=== PATIENT | female | born 1935 | race Caucasian/White ===

== ENCOUNTER 2017-12-08 12:57 | Inpatient (IN) ==
--- NOTE | 2017-12-08 13:42 | CT ---
HISTORY: Altered mental status Study: CT brain without contrast Comparison: None Technique: Multiple axial images of the brain were obtained from the skull base to the vertex without administra tion of IV contrast. Findings: No acute intraparenchymal hemorrhage or mass can be identified. No extra-axial fluid collections are seen. No alteration in the attenuation of the brain parenchyma can be identified to suggest acute o r subacute ischemic change. The ventricles, sulci, and cisterns demonstrate an appearance consistent with a mild degree of generalized atrophy. Patchy areas decreased attenuation within the periventri cular, subcortical, and subinsular white matter suggest changes of chronic small vessel ischemic dise ase. A remote infarct is seen within the region of the left thalamus. If symptoms or clinical concern persist recommend continued follow-up for further evaluation. IMPRESSION: No acute intracranial process can be identified. Mild generalized atrophy with findings consistent with changes of chronic small vessel ischemic disea se. Reported By:
[2017-12-08 14:18] LABS: BASOPHILS # (AUTO) 0.1 X10^3/uL (0.0-0.1); BASOPHILS % (AUTO) 0.8 % (0.2-1.0); EOSINOPHILS % (AUTO) 0.4 % (0.9-2.9); HEMATOCRIT 46.2 % (36.0-47.0); HEMOGLOBIN 15.9 g/dL (12.0-16.0); LYMPHOCYTES # (AUTO) 1.5 X10^3/uL (1.3-2.9); LYMPHOCYTES % (AUTO) 16.4 % (21.0-51.0); MEAN CORPUSCULAR HEMOGLOBIN 31.5 pg (27.0-34.0); MEAN CORPUSCULAR HGB CONC 34.5 g/dL (33.0-35.0); MEAN CORPUSCULAR VOLUME 91.5 fL (80.0-100.0); MEAN PLATELET VOLUME 8.9 fL (7.4-11.0); MONOCYTES # (AUTO) 0.9 x10^3/uL (0.3-0.8); MONOCYTES % (AUTO) 9.4 % (0.0-13.0); NEUTROPHILS # (AUTO) 6.8 x10^3/uL (2.2-4.8); PLATELET COUNT 261 X10^3/uL (150.0-450.0); RED BLOOD COUNT 5.05 X10^6/uL (3.5-5.4); WHITE BLOOD COUNT 9.3 X10^3/uL (3.6-10.0)
[2017-12-08 14:25] LABS: ALBUMIN 3.2 g/dL (3.4-5.0); CALCIUM 9.1 mg/dL (8.5-10.1); COR CA(FOR HYPOALB) 9.7 mg/dL (8.5-10.1); CREATININE 1.21 mg/dL (0.55-1.02); TOTAL PROTEIN 7.1 g/dL (6.4-8.2)
[2017-12-08 14:37] LABS: BILIRUBIN,URINE NEGATIVE (NEGATIVE); BLOOD/HEMOGLOBIN,URINE 1+ (NEGATIVE); GLUCOSE, URINE NEGATIVE (NEGATIVE); KETONES,URINE NEGATIVE (NEGATIVE); LEUKOCYTE ESTERASE ,URINE NEGATIVE (NEGATIVE); NITRITES,URINE NEGATIVE (NEGATIVE); PROTEIN,URINE NEGATIVE (NEGATIVE); UROBILINOGEN,URINE NORMAL (NORMAL)
[2017-12-08 14:44] LABS: COLOR,URINE YELLOW (YELLOW)
[2017-12-08 14:47] LABS: APPEARANCE,URINE CLEAR (CLEAR); RBC,URINE 0-2 /HPF (NONE SEEN)
[2017-12-08 14:48] LABS: BACTERIA,URINE NEGATIVE /HPF (NEGATIVE); SQUAMOUS EPITHELIAL CELL,UR NEGATIVE /HPF (NEGATIVE)
--- NOTE | 2017-12-08 15:17 | DR.AMS ---
HPI Time Seen Time Seen by Provider: 12/08/17 14:35 PCP Primary Care Physician: POWELL Complaint Chief Complaint:: PT'S FAMILY MEMBER C/O PT IS HAVING STROKE LIKE SYMPTOMS. PT IS NOTED TO HAVE NO DEFICITS, BUT HAVING SLIGHT ALTERED MENTAL STATUS. PT;'S FAMILY STATUS PT HAS BEEN BATTLING A UTI FOR APPROX 12 DAYS Source History Provided: Patient and Family Member Mode of Arrival Mode of Arrival: Wheelchair Timing Onset of Chief Complaint: 12/08/17 PMH PMH Past Medical History: Yes Past Medical History: Hypertension Past Medical History Comment: BREAST CA, PSORSIS, MACULAR DEGENERATION, TIA Past Surgical History: Yes Surgical History: Mastectomy Past Surgical History Comment: CATARACTS, Family History History of Family Medical Conditions: No Social History Does any household member use tobacco: No Alcohol Use: None Do you use any recreational Drugs:: No Lives With: Family Lives Where: Home infectious screening In the last 2 months have you had wt loss of >10#?: NO Have you had fever, night sweats or hemotysis?: No Have you traveled outside the country in the last 6 months?: No Isolation: Standard PE Vitals Vital Signs: Temp Pulse Pulse Resp BP BP Pulse Ox 12/09/17 06:00 71 28 H 150/72 97 12/09/17 05:00 69 26 H 107/58 96 12/09/17 04:00 75 25 H 132/59 97 12/09/17 03:00 77 30 H 153/95 98 12/09/17 02:00 73 27 H 138/74 98 12/09/17 01:00 69 25 H 140/65 98 12/09/17 00:00 97.8 F 69 25 H 121/72 98 12/08/17 23:00 65 24 99 12/08/17 22:00 71 24 118/65 99 12/08/17 21:00 77 31 H 117/83 99 12/08/17 20:00 75 24 148/79 95 12/08/17 19:00 74 26 H 134/95 96 12/08/17 18:00 73 25 H 154/80 93 L 12/08/17 17:00 74 22 155/78 97 12/08/17 16:20 98.3 F 72 20 153/93 95 12/08/17 15:30 74 24 134/77 94 L 12/08/17 15:15 75 25 H 127/75 93 L 12/08/17 15:00 77 26 H 123/72 92 L 12/08/17 14:45 80 80 28 H 133/77 133/77 92 L 12/08/17 14:30 81 81 29 H 135/75 135/75 95 12/08/17 14:20 85 12/08/17 14:15 150/80 12/08/17 14:02 96 12/08/17 14:00 85 85 22 134/72 134/72 96 12/08/17 13:47 87 95 12/08/17 13:45 87 24 145/80 95 12/08/17 12:59 99.5 F 109 H 20 135/78 97 General Limitations: Altered Mental Status General Appearance: Lethargic; negative In Distress Head Head Exam: Normal Inspection, Atraumatic and Normocephalic Head Exam Physical: negative Laceration, Abrasion and Contusion Eyes Eye exam: Normal Appearance, PERRL and EOMI Pupils: Regular, Round: Bilateral ENT ENT Exam: Normal Exam, Normal Oropharynx and Normal External Ear Exam TM/Canal Exam: Bilateral: Normal Nose Exam: Normal Nose Exam and Sinus Tenderness Mouth Exam: Normal Inspection; negative Drooling and Trismus Throat Exam: Normal Inspection; negative Tonsillar Erythema Neck Neck Exam: Normal Inspection and Full ROM Chest Chest Inspection: Normal Inspection and Symmetric Chest Wall Rise Respiratory Respiratory Exam: Normal Lung Sounds Bilat; negative Chest Wall Tenderness, Prolonged Expiratory Phase, Respiratory Distress and Stridor Respiratory Exam: Bilateral: Clear to Auscultation Cardiovascular Cardiovascular Exam: Regular Rate and Normal Rhythm Abdominal Exam Abdominal Exam: Normal Inspection, Normal Bowel Sounds and Soft Abdominal Tenderness: negative RUQ, RLQ, LUQ, LLQ, Epigastrium and Suprapubic Extremities Extremities Exam: Normal Inspection Back Back Exam: Normal Inspection Neurological Neurological Exam: Alert, CN II-XII Intact and Reflexes Normal Speech: Fluid Speech Cranial Nerve Exam: EOM Function (II, III, IV, ): Normal Psychological Expanded Psychiatric Exam: Poor Eye Contact Skin Skin Exam: Warm, Dry and Intact COURSE Treatment Treatment: oxygen, NS Reevaluation 1st: Unchanged Consultation Called: 15:10 Consultation Comments: Dr. Brennan agreed to admit for further evaluation and treatment. ROR Labs Reviewed Laboratory Results Reviewed?: Yes Result Diagrams: 12/09/17 05:15 12/09/17 05:15 Laboratory: WBC 7.9 X10^3/uL (3.6-10.0) 12/09/17 05:15 RBC 4.60 X10^6/uL (3.5-5.4) 12/09/17 05:15 Hgb 14.5 g/dL (12.0-16.0) 12/09/17 05:15 Hct 42.0 % (36.0-47.0) 12/09/17 05:15 MCV 91.4 fL (80.0-100.0) 12/09/17 05:15 MCH 31.5 pg (27.0-34.0) 12/09/17 05:15 MCHC 34.5 g/dL (33.0-35.0) 12/09/17 05:15 RDW 13.8 % (11.6-16.5) 12/09/17 05:15 Plt Count 228 X10^3/uL (150.0-450.0) 12/09/17 05:15 MPV 8.9 fL (7.4-11.0) 12/09/17 05:15 Neut % (Auto) 58.4 % (42.0-75.0) 12/09/17 05:15 Lymph % (Auto) 23.9 % (21.0-51.0) 12/09/17 05:15 [place] % (Auto) 13.0 % (0.0-13.0) 12/09/17 05:15 Eos % (Auto) 3.3 % (0.9-2.9) H 12/09/17 05:15 Baso % (Auto) 1.4 % (0.2-1.0) H 12/09/17 05:15 Neut # (Auto) 4.6 x10^3/uL (2.2-4.8) 12/09/17 05:15 Lymph # (Auto) 1.9 X10^3/uL (1.3-2.9) 12/09/17 05:15 [place] # (Auto) 1.0 x10^3/uL (0.3-0.8) H 12/09/17 05:15 Eos # (Auto) 0.3 x10^3/uL (0.0-0.2) H 12/09/17 05:15 Baso # (Auto) 0.1 X10^3/uL (0.0-0.1) 12/09/17 05:15 Absolute Nucleated RBC 0.0 /100WBC 12/09/17 05:15 INR Target Range - 12/08/17 13:38 INR 1.04 (0.8-1.3) 12/08/17 13:38 APTT 24.7 SECONDS (22.9-36.5) 12/08/17 13:38 PTT Comment - 12/08/17 13:38 Fibrinogen 382 mg/dL (239-489) 12/08/17 13:38 Sodium 139 mmol/L (136-145) 12/09/17 05:15 Corrected Sodium 140 mmol/L (136-145) 12/09/17 05:15 Potassium 4.2 mmol/L (3.5-5.1) 12/09/17 05:15 Chloride 107 mmol/L (98-107) 12/09/17 05:15 Carbon Dioxide 23.9 mmol/L (21-32) 12/09/17 05:15 BUN 18 mg/dL (7-18) 12/09/17 05:15 Creatinine 0.98 mg/dL (0.55-1.02) 12/09/17 05:15 Est GFR (MDRD) Af Amer > 60 (>60) 12/09/17 05:15 Est GFR (MDRD) Non-Af 58 (>60) L 12/09/17 05:15 Glucose 127 mg/dL (65-99) H 12/09/17 05:15 Calcium 8.2 mg/dL (8.5-10.1) L 12/09/17 05:15 Corrected Calcium 9.3 mg/dL (8.5-10.1) 12/09/17 05:15 Total Bilirubin 0.20 mg/dL (0.2-1.0) 12/09/17 05:15 AST 19 Units/L (15-37) 12/09/17 05:15 ALT 24 Units/L (12-78) 12/09/17 05:15 Alkaline Phosphatase 56 Units/L (46-116) 12/09/17 05:15 Total Protein 5.8 g/dL (6.4-8.2) L 12/09/17 05:15 Albumin 2.6 g/dL (3.4-5.0) L 12/09/17 05:15 Globulin 3.2 g/dL (2.5-4.5) 12/09/17 05:15 Albumin/Globulin Ratio 0.8 Ratio (1.1-2.1) L 12/09/17 05:15 Specimen Type Catherized urine 12/08/17 14:32 Urine Color Yellow (YELLOW) 12/08/17 14:32 Urine Appearance Clear (CLEAR) 12/08/17 14:32 Urine pH 6.0 (5.0 - 8.0) 12/08/17 14:32 Ur Specific [place] 1.010 (1.000-1.030) 12/08/17 14:32 Urine Protein Negative (NEGATIVE) 12/08/17 14:32 Urine Glucose (UA) Negative (NEGATIVE) 12/08/17 14:32 Urine Ketones Negative (NEGATIVE) 12/08/17 14:32 Urine Occult Blood 1+ (NEGATIVE) 12/08/17 14:32 Urine Nitrite Negative (NEGATIVE) 12/08/17 14:32 Urine Bilirubin Negative (NEGATIVE) 12/08/17 14:32 Urine Urobilinogen Normal (NORMAL) 12/08/17 14:32 Ur Leukocyte Esterase Negative (NEGATIVE) 12/08/17 14:32 Urine RBC 0-2 /HPF (NONE SEEN) 12/08/17 14:32 Urine WBC 0-2 /HPF (NONE SEEN) 12/08/17 14:32 Ur Squamous Epith Cells Negative /HPF (NEGATIVE) 12/08/17 14:32 Urine Bacteria Negative /HPF (NEGATIVE) 12/08/17 14:32 Ur Culture Indicated? No/not indicated 12/08/17 14:32 XRAY XRAY Findings: CT Brain: No acute intracranial process can be identified. Mild atrophy
[2017-12-08] MEDS ORDERED: NS 1000 ML 1,000 ML IV SCH (16:00)
[2017-12-08] MEDS ORDERED: NS 100 ML IV 100 ML IV SCH (16:00)
[2017-12-08] MEDS ORDERED: BACTRIM DS TAB PO SCH (16:28)
[2017-12-08] MEDS ORDERED: NS 1000 ML 1,000 ML ONE (16:32)
[2017-12-08 17:31] VITALS: BMI 25.2
[2017-12-08] MEDS: CIPRO TAB 500 MG PO SCH (20:43)
[2017-12-08] MEDS: TOPROL XL PO SCH (20:43)
[2017-12-09] MEDS: NS 1000 ML 1,000 ML IV SCH ×3 (02:01→17:23)
[2017-12-09 05:50] LABS: BASOPHILS # (AUTO) 0.1 X10^3/uL (0.0-0.1); BASOPHILS % (AUTO) 1.4 % (0.2-1.0); EOSINOPHILS # (AUTO) 0.3 x10^3/uL (0.0-0.2); EOSINOPHILS % (AUTO) 3.3 % (0.9-2.9); HEMOGLOBIN 14.5 g/dL (12.0-16.0); LYMPHOCYTES # (AUTO) 1.9 X10^3/uL (1.3-2.9); LYMPHOCYTES % (AUTO) 23.9 % (21.0-51.0); MEAN CORPUSCULAR HEMOGLOBIN 31.5 pg (27.0-34.0); MEAN CORPUSCULAR HGB CONC 34.5 g/dL (33.0-35.0); MEAN CORPUSCULAR VOLUME 91.4 fL (80.0-100.0); MEAN PLATELET VOLUME 8.9 fL (7.4-11.0); NEUTROPHILS # (AUTO) 4.6 x10^3/uL (2.2-4.8); NEUTROPHILS % (AUTO) 58.4 % (42.0-75.0); PLATELET COUNT 228 X10^3/uL (150.0-450.0); RED CELL DISTRIBUTION WIDTH 13.8 % (11.6-16.5); WHITE BLOOD COUNT 7.9 X10^3/uL (3.6-10.0)
[2017-12-09 06:06] LABS: ALANINE AMINOTRANSFERASE 24 Units/L (12-78); ALBUMIN 2.6 g/dL (3.4-5.0); ALKALINE PHOSPHATASE 56 Units/L (46-116); ASPARTATE AMINO TRANSFERASE 19 Units/L (15-37); BLOOD UREA NITROGEN 18 mg/dL (7-18); CALCIUM 8.2 mg/dL (8.5-10.1); CARBON DIOXIDE 23.9 mmol/L (21-32); CHLORIDE 107 mmol/L (98-107); COR CA(FOR HYPOALB) 9.3 mg/dL (8.5-10.1); COR NA(FOR HYPERGLY) 140 mmol/L (136-145); CREATININE 0.98 mg/dL (0.55-1.02); SODIUM 139 mmol/L (136-145); TOTAL PROTEIN 5.8 g/dL (6.4-8.2); eGFR NON BLACK RACES 58 (>60)
[2017-12-09 08:00] LABS: CKMB % 2.6 % (<4); CREATINE KINASE 38 Units/L (26-192); CREATINE KINASE MB < 1.0 ng/mL (0-4.0); TROPONIN I < 0.02 ng/mL (0-1.5)
[2017-12-09] MEDS ORDERED: BACTRIM DS TAB PO SCH (09:00)
[2017-12-09] MEDS: TOPROL XL PO SCH ×2 (09:22→21:40)
[2017-12-09] MEDS: CIPRO TAB 500 MG PO SCH (10:22)
--- NOTE | 2017-12-09 11:51 | DR.H&P ---
H&P - History & Physical for Day of: H&P Date: 12/08/17 - Chief Complaint Chief Complaint: AMS, IMPAIRED SPEECH, "MINI STROKE" PER FAMILY - History of Present Illness History of Present Illness: 81 WF ER ADMISSION AFTER PRESENTING WITH FAMILY STATING PT HAS NEW ONSET CONFUSION, RIGHT FACIAL WEAKNESS, "SCRAMBLING WORDS" PT FAMILY REPORTS SHE IS NORMAL INDEPENDENT AT HOME, TAKES BP MEDICATION ONLY. FAMIL REPORTS HX OF "MINI STROKE FEW YEARS AGO". PT RECENTLY HAD AB THEN UTI AND INCREASED FALLS ALL OVER THE PAST MONTH. FAMILY STATES SHE WAS IMPROVING AND THEN HAD ONSET OF AMS YESTERDAY. PT HAD CT HEAD ON ADMISSION AND ADMITTED TO ICU FOR R/O ACUTE CVA - Past Medical History Past Medical History: Arthritis, CVA, Hypertension - Past Surgical History Surgical History: Mastectomy - Family History Family Medical History: Cancer - Social History Does patient currently use any type of tobacco product: No Have you used tobacco products in the last 12 months: No Type of Tobacco Use: None Does any household member use tobacco: No Alcohol Use: None Drug Use: None - Medications Home Medications: codeine Adverse Reaction (Verified 12/08/17 12:59) CONTINUE taking the following medications ciprofloxacin HCl 500 mg PO BID 12/08/17 [History] meloxicam 1 tab PO DAILY PRN 12/08/17 [History] metoprolol succinate 2 tab PO BID 12/08/17 [History] sulfamethoxazole-trimethoprim [Bactrim DS] 0.5 tab PO Q12H 12/08/17 [History] - Review of Systems Constitutional: Weakness Eyes: No Symptoms Reported ENT: No Symptoms Reported Respiratory: No Symptoms Reported Cardiovascular: Edema Gastrointestinal: No Symptoms Reported Genitourinary: No Symptoms Reported Musculoskeletal: Leg Pain Skin: No Symptoms Reported Neurological: Weakness, Confusion - Physical Exam Vital Signs: Temperature 98.4 F Pulse Rate [Right Radial] 73 Pulse Rate 74 Respiratory Rate 22 Blood Pressure [Right Arm] 157/78 Blood Pressure 134/77 O2 Sat by Pulse Oximetry 100 Oriented: Person Eyes: Normal Ear: Normal Nose: Normal Throat: Normal Respiratory: RLL Diminished, LLL Diminished Cardiovascular: Normal, Edema (BILATERAL TRACE EDEMA) : Normal Auscultation: Bowel Sounds: Normal Palpation: Normal Tenderness: Normal Skin: Decreased Turgur Musculoskeletal: Back:Thoracic, Back:Lumbar Psychiatric: Normal Mood Description: Calm Speech Pattern: Clear, Appropriate - Assessment/Plan (1) Altered mental status Status: Acute Plan: ADMIT ICU, ADMISSION LABS CT HEAD AND EKG ON ADMISSION. CXR ON ADMISSION. BP AND CARDIAC MONITORING. SERIAL CE, VERIFY HOME MEDS. BLOOD AND URINE CULTURES (2) TIA (transient ischemic attack) Status: Acute (3) Hypertension Status: Acute - Allergies Allergies/Adverse Reactions: Allergies Allergy/AdvReac Type Severity Reaction Status Date / Time codeine AdvReac Verified 12/08/17 12:59
[2017-12-09] MEDS: PLAVIX PO SCH (12:05)
--- NOTE | 2017-12-09 12:16 | PCM.PROG ---
Progress Note - Progress Note for Day of Date of Exam: 12/09/17 - Subjective Subjective: 81 WF ER ADMISSION ON 12/08 R/O ACUTE CVA. PT AWAKE AND ALERT THIS AM , VERY HARD OF HEARING, FAMILY AT BEDSIDE. PT HAS MILD RIGHT MOUTH DROOP, NORMAL SPEECH AND EQUAL UPPER AND LOWER EXTREMITY STRENGTH. FAMILY CONCERNED PT RECENTLY HAD UTI. PT UA ON ADMISSION NOT INDICATED FOR CULTURE. ADDED URINE CULTURES, MRI BRAIN Q AM. CAROTID ARTERY US, STARTED ON STATIN AND PLAVIX - Past Medical Family Social History Past Med/Fam/Surg Hx: No changes since H&P Allergies: Allergies codeine Adverse Reaction (Verified 12/08/17 12:59) - Review of Systems ROS: No change since H&P - Vital Signs and I&O's Vital Signs: Temperature 98.4 F Pulse Rate [Right Radial] 73 Pulse Rate 74 Respiratory Rate 22 Blood Pressure [Right Arm] 157/78 Blood Pressure 134/77 O2 Sat by Pulse Oximetry 100 Intake and Output: Intake & Output 12/07/17 12/08/17 12/09/17 12/10/17 11:59 11:59 11:59 11:59 Intake Total 2029 Balance 2029 - Physical Exam Oriented: Person Eyes: Normal Ear: Normal Nose: Normal Throat: Normal Respiratory: Diminished Cardiovascular: Normal, Edema (BILATERAL TRACE EDEMA) : Normal Auscultation: Bowel Sounds: Normal Tenderness: Normal Skin: Decreased Turgur Musculoskeletal: Back:Thoracic, Back:Lumbar Psychiatric: Normal Mood Description: Calm Speech Pattern: Clear, Appropriate - Laboratory and Diagnostics Result Diagrams: 12/09/17 05:15 12/09/17 05:15 Labs: Laboratory WBC 7.9 X10^3/uL (3.6-10.0) 12/09/17 05:15 RBC 4.60 X10^6/uL (3.5-5.4) 12/09/17 05:15 Hgb 14.5 g/dL (12.0-16.0) 12/09/17 05:15 Hct 42.0 % (36.0-47.0) 12/09/17 05:15 MCV 91.4 fL (80.0-100.0) 12/09/17 05:15 MCH 31.5 pg (27.0-34.0) 12/09/17 05:15 MCHC 34.5 g/dL (33.0-35.0) 12/09/17 05:15 RDW 13.8 % (11.6-16.5) 12/09/17 05:15 Plt Count 228 X10^3/uL (150.0-450.0) 12/09/17 05:15 MPV 8.9 fL (7.4-11.0) 12/09/17 05:15 Neut % (Auto) 58.4 % (42.0-75.0) 12/09/17 05:15 Lymph % (Auto) 23.9 % (21.0-51.0) 12/09/17 05:15 [place] % (Auto) 13.0 % (0.0-13.0) 12/09/17 05:15 Eos % (Auto) 3.3 % (0.9-2.9) H 12/09/17 05:15 Baso % (Auto) 1.4 % (0.2-1.0) H 12/09/17 05:15 Neut # (Auto) 4.6 x10^3/uL (2.2-4.8) 12/09/17 05:15 Lymph # (Auto) 1.9 X10^3/uL (1.3-2.9) 12/09/17 05:15 [place] # (Auto) 1.0 x10^3/uL (0.3-0.8) H 12/09/17 05:15 Eos # (Auto) 0.3 x10^3/uL (0.0-0.2) H 12/09/17 05:15 Baso # (Auto) 0.1 X10^3/uL (0.0-0.1) 12/09/17 05:15 Absolute Nucleated RBC 0.0 /100WBC 12/09/17 05:15 INR Target Range - 12/08/17 13:38 INR 1.04 (0.8-1.3) 12/08/17 13:38 APTT 24.7 SECONDS (22.9-36.5) 12/08/17 13:38 PTT Comment - 12/08/17 13:38 Fibrinogen 382 mg/dL (239-489) 12/08/17 13:38 Sodium 139 mmol/L (136-145) 12/09/17 05:15 Corrected Sodium 140 mmol/L (136-145) 12/09/17 05:15 Potassium 4.2 mmol/L (3.5-5.1) 12/09/17 05:15 Chloride 107 mmol/L (98-107) 12/09/17 05:15 Carbon Dioxide 23.9 mmol/L (21-32) 12/09/17 05:15 BUN 18 mg/dL (7-18) 12/09/17 05:15 Creatinine 0.98 mg/dL (0.55-1.02) 12/09/17 05:15 Est GFR (MDRD) Af Amer > 60 (>60) 12/09/17 05:15 Est GFR (MDRD) Non-Af 58 (>60) L 12/09/17 05:15 Glucose 127 mg/dL (65-99) H 12/09/17 05:15 Calcium 8.2 mg/dL (8.5-10.1) L 12/09/17 05:15 Corrected Calcium 9.3 mg/dL (8.5-10.1) 12/09/17 05:15 Total Bilirubin 0.20 mg/dL (0.2-1.0) 12/09/17 05:15 AST 19 Units/L (15-37) 12/09/17 05:15 ALT 24 Units/L (12-78) 12/09/17 05:15 Alkaline Phosphatase 56 Units/L (46-116) 12/09/17 05:15 Creatine Kinase 38 Units/L (26-192) 12/09/17 05:15 CK-MB (CK-2) < 1.0 ng/mL (0-4.0) 12/09/17 05:15 CK/CKMB % Calc 2.6 % (<4) 12/09/17 05:15 Troponin I < 0.02 ng/mL (0-1.5) 12/09/17 05:15 Total Protein 5.8 g/dL (6.4-8.2) L 12/09/17 05:15 Albumin 2.6 g/dL (3.4-5.0) L 12/09/17 05:15 Globulin 3.2 g/dL (2.5-4.5) 12/09/17 05:15 Albumin/Globulin Ratio 0.8 Ratio (1.1-2.1) L 12/09/17 05:15 Specimen Type Catherized urine 12/08/17 14:32 Urine Color Yellow (YELLOW) 12/08/17 14:32 Urine Appearance Clear (CLEAR) 12/08/17 14:32 Urine pH 6.0 (5.0 - 8.0) 12/08/17 14:32 Ur Specific [place] 1.010 (1.000-1.030) 12/08/17 14:32 Urine Protein Negative (NEGATIVE) 12/08/17 14:32 Urine Glucose (UA) Negative (NEGATIVE) 12/08/17 14:32 Urine Ketones Negative (NEGATIVE) 12/08/17 14:32 Urine Occult Blood 1+ (NEGATIVE) 12/08/17 14:32 Urine Nitrite Negative (NEGATIVE) 12/08/17 14:32 Urine Bilirubin Negative (NEGATIVE) 12/08/17 14:32 Urine Urobilinogen Normal (NORMAL) 12/08/17 14:32 Ur Leukocyte Esterase Negative (NEGATIVE) 12/08/17 14:32 Urine RBC 0-2 /HPF (NONE SEEN) 12/08/17 14:32 Urine WBC 0-2 /HPF (NONE SEEN) 12/08/17 14:32 Ur Squamous Epith Cells Negative /HPF (NEGATIVE) 12/08/17 14:32 Urine Bacteria Negative /HPF (NEGATIVE) 12/08/17 14:32 Ur Culture Indicated? No/not indicated 12/08/17 14:32 - Plan (1) Altered mental status Status: Acute Plan: AM LABS CT HEAD AND EKG ON ADMISSION. CXR ON ADMISSION. BP AND CARDIAC MONITORING. SERIAL CE, VERIFY HOME MEDS, STATIN PLAVIX. MRI BRAIN ON SUNDAY, CAROTID ARTERY US. BLOOD AND URINE CULTURES ORDERED (2) TIA (transient ischemic attack) Status: Acute (3) Hypertension Status: Acute
--- NOTE | 2017-12-09 13:56 | CT ---
HISTORY: Neck pain status post fall Study: CT cervical spine without contrast Comparison: Technique: Multiple axial images of the cervical spine were obtained from the skull base to the thora cic inlet without administration of IV contrast. Sagittal and coronal reformats were performed and r eviewed. Findings: Alignment of the cervical spine is maintained. No evidence for acute cortical disruption or subluxat ion can be seen. The central canal remains free of compromise from bony fragments or significant sof t tissue encroachment. The posterior elements appear unremarkable. The prevertebral soft tissues ar e normal in their appearance. In addition, the surrounding paraspinous soft tissues are unremarkable .Moderate degenerative changes of the cervical spine are incidentally noted. IMPRESSION: 1. No evidence for traumatic injury of the cervical spine. Reported By:
--- NOTE | 2017-12-09 15:31 | VAS ---
HISTORY: Acute altered mental status and TIA. Study: Carotid ultrasound. Comparison: CT head dated December 08, 2017. Technique: Multiple elaine scale and color flow Doppler images of the right and left carotid arterial s ystem were obtained. The vertebral arterial system was evaluated as well. Findings: Normal color flow Doppler is seen throughout the right and left carotid arterial system. Maximum inte rnal carotid artery velocity of 51 centimeters/second on the right and maximum internal carotid arter y velocity on the left of 56 centimeters/second. Right ICA/CCA ratio of 0.8 and left ICA/CCA ratio 1. 1. [id number] calcific plaque is seen at the bilateral carotid bulbs. No hemodynamically signi ficant stenosis is seen based on velocity criteria. The right and left vertebral arteries demonstrat e antegrade flow. IMPRESSION: Less than 50% stenosis of the bilateral internal carotid arteries. Reported By:
[2017-12-09] MEDS: ASPIRIN EC 81 MG PO SCH (16:27)
[2017-12-09] MEDS ORDERED: PLAVIX PO STA (16:44)
[2017-12-09] MEDS ORDERED: NORVASC TAB 5 MG ONE (18:43)
[2017-12-09] MEDS ORDERED: CATAPRES TAB 0.1 MG ONE (18:43)
[2017-12-09] MEDS ORDERED: APRESOLINE INJ 20 MG VIAL IVP PRN (18:45)
[2017-12-09] MEDS ORDERED: CATAPRES TAB 0.1 MG PO PRN (18:45)
[2017-12-09] MEDS: NORVASC TAB 5 MG PO SCH (18:52)
[2017-12-09 19:39] LABS: CKMB % 2.6 % (<4); CREATINE KINASE 38 Units/L (26-192); CREATINE KINASE MB < 1.0 ng/mL (0-4.0); TROPONIN I < 0.02 ng/mL (0-1.5)
[2017-12-09] MEDS ORDERED: TOPROL XL PO SCH (21:00)
[2017-12-09] MEDS: CRESTOR TAB 10 MG PO SCH (21:40)
[2017-12-09 23:19] LABS: CKMB % 2.7 % (<4); CREATINE KINASE 37 Units/L (26-192); CREATINE KINASE MB < 1.0 ng/mL (0-4.0); TROPONIN I < 0.02 ng/mL (0-1.5)
[2017-12-10 02:58] LABS: CKMB % 3.9 % (<4); CREATINE KINASE 26 Units/L (26-192); CREATINE KINASE MB < 1.0 ng/mL (0-4.0); TROPONIN I < 0.02 ng/mL (0-1.5)
[2017-12-10 06:37] LABS: BASOPHILS # (AUTO) 0.1 X10^3/uL (0.0-0.1); BASOPHILS % (AUTO) 1.3 % (0.2-1.0); EOSINOPHILS # (AUTO) 0.3 x10^3/uL (0.0-0.2); EOSINOPHILS % (AUTO) 3.6 % (0.9-2.9); HEMATOCRIT 41.5 % (36.0-47.0); HEMOGLOBIN 14.5 g/dL (12.0-16.0); LYMPHOCYTES % (AUTO) 24.3 % (21.0-51.0); MEAN CORPUSCULAR HEMOGLOBIN 31.8 pg (27.0-34.0); MEAN CORPUSCULAR HGB CONC 34.9 g/dL (33.0-35.0); MEAN CORPUSCULAR VOLUME 91.1 fL (80.0-100.0); MEAN PLATELET VOLUME 8.5 fL (7.4-11.0); MONOCYTES # (AUTO) 1.1 x10^3/uL (0.3-0.8); MONOCYTES % (AUTO) 12.7 % (0.0-13.0); NEUTROPHILS # (AUTO) 4.9 x10^3/uL (2.2-4.8); NEUTROPHILS % (AUTO) 58.1 % (42.0-75.0); PLATELET COUNT 216 X10^3/uL (150.0-450.0); RED BLOOD COUNT 4.56 X10^6/uL (3.5-5.4); RED CELL DISTRIBUTION WIDTH 14.2 % (11.6-16.5); WHITE BLOOD COUNT 8.4 X10^3/uL (3.6-10.0)
[2017-12-10] MEDS: NS 1000 ML 1,000 ML IV SCH ×4 (06:45→21:00)
[2017-12-10 06:50] LABS: ALANINE AMINOTRANSFERASE 26 Units/L (12-78); ALBUMIN 2.5 g/dL (3.4-5.0); ALKALINE PHOSPHATASE 59 Units/L (46-116); ASPARTATE AMINO TRANSFERASE 22 Units/L (15-37); BLOOD UREA NITROGEN 13 mg/dL (7-18); CALCIUM 8.1 mg/dL (8.5-10.1); CARBON DIOXIDE 24.7 mmol/L (21-32); CHLORIDE 106 mmol/L (98-107); COR CA(FOR HYPOALB) 9.3 mg/dL (8.5-10.1); COR NA(FOR HYPERGLY) 138 mmol/L (136-145); CREATININE 0.91 mg/dL (0.55-1.02); SODIUM 138 mmol/L (136-145); TOTAL PROTEIN 5.7 g/dL (6.4-8.2); eGFR NON BLACK RACES > 60 (>60)
[2017-12-10] MEDS: NORVASC TAB 5 MG PO SCH (08:53)
[2017-12-10] MEDS: PLAVIX PO SCH (08:53)
[2017-12-10] MEDS: TOPROL XL PO SCH ×2 (08:54→20:56)
[2017-12-10] MEDS: ASPIRIN EC 81 MG PO SCH (08:54)
[2017-12-10] MEDS ORDERED: PLAVIX PO SCH (09:00)
--- NOTE | 2017-12-10 10:37 | MRI ---
HISTORY: Stroke-like symptoms Study: Noncontrast MRI of the brain Comparison: CT scan of the brain done 12/08/2017. Technique: Multiple imaging planes and pulse sequences were utilized in evaluating the brain by MELBA st. No IV contrast agents were utilized. Findings: Best seen on diffusion-weighted imaging sequences there is an area of restricted diffusion compatible with an acute infarct involving the left thalamus region anteriorly. This measures about 1.4 x 2.2 c m. No evidence of hemorrhagic transformation is seen. Ventricular size is normal. FLAIR sequence disp lays evidence of microangiopathic change bilaterally brainstem and cerebellum unremarkable. No eviden ce of mass is seen. IMPRESSION: Area of acute infarction involving the left thalamus region anteriorly. No evidence of mass or hemorr basim is seen. Findings discussed with nurse Hanna at 10:33 a.m. on 12/10/2017. Reported By:
[2017-12-10] MEDS: MILK OF MAGNESIA PO SCH (10:55)
[2017-12-10] MEDS: CRESTOR TAB 10 MG PO SCH (20:56)
[2017-12-11 05:51] LABS: BASOPHILS # (AUTO) 0.1 X10^3/uL (0.0-0.1); BASOPHILS % (AUTO) 1.2 % (0.2-1.0); EOSINOPHILS # (AUTO) 0.4 x10^3/uL (0.0-0.2); EOSINOPHILS % (AUTO) 4.4 % (0.9-2.9); HEMATOCRIT 42.4 % (36.0-47.0); HEMOGLOBIN 14.8 g/dL (12.0-16.0); LYMPHOCYTES # (AUTO) 2.2 X10^3/uL (1.3-2.9); LYMPHOCYTES % (AUTO) 27.7 % (21.0-51.0); MEAN CORPUSCULAR HEMOGLOBIN 31.8 pg (27.0-34.0); MEAN CORPUSCULAR HGB CONC 34.9 g/dL (33.0-35.0); MEAN CORPUSCULAR VOLUME 91.2 fL (80.0-100.0); MEAN PLATELET VOLUME 8.2 fL (7.4-11.0); MONOCYTES # (AUTO) 1.1 x10^3/uL (0.3-0.8); MONOCYTES % (AUTO) 13.4 % (0.0-13.0); NEUTROPHILS # (AUTO) 4.3 x10^3/uL (2.2-4.8); NEUTROPHILS % (AUTO) 53.3 % (42.0-75.0); PLATELET COUNT 246 X10^3/uL (150.0-450.0); RED BLOOD COUNT 4.64 X10^6/uL (3.5-5.4); RED CELL DISTRIBUTION WIDTH 14.1 % (11.6-16.5)
[2017-12-11 06:10] LABS: ALANINE AMINOTRANSFERASE 32 Units/L (12-78); ALBUMIN 2.6 g/dL (3.4-5.0); ALKALINE PHOSPHATASE 67 Units/L (46-116); ASPARTATE AMINO TRANSFERASE 26 Units/L (15-37); BLOOD UREA NITROGEN 15 mg/dL (7-18); CALCIUM 8.3 mg/dL (8.5-10.1); CARBON DIOXIDE 26.5 mmol/L (21-32); CHLORIDE 106 mmol/L (98-107); COR CA(FOR HYPOALB) 9.4 mg/dL (8.5-10.1); COR NA(FOR HYPERGLY) 140 mmol/L (136-145); CREATININE 0.98 mg/dL (0.55-1.02); SODIUM 140 mmol/L (136-145); eGFR NON BLACK RACES 58 (>60)
[2017-12-11] MEDS: NS 1000 ML 1,000 ML IV SCH (08:29)
[2017-12-11] MEDS: TOPROL XL PO SCH (08:30)
[2017-12-11] MEDS: NORVASC TAB 5 MG PO SCH (08:30)
[2017-12-11] MEDS: ASPIRIN EC 81 MG PO SCH (08:30)
[2017-12-11] MEDS: MILK OF MAGNESIA PO SCH (08:30)
[2017-12-11] MEDS: PLAVIX PO SCH (08:31)
--- NOTE | 2017-12-11 17:37 | PCM.PROG ---
Progress Note - Progress Note for Day of Date of Exam: 12/11/17 - Subjective Subjective: 81 WF ER ADMISSION ON 12/08 R/O ACUTE CVA. PT AWAKE AND ALERT THIS AM, VERY HARD OF HEARING, FAMILY AT BEDSIDE. PT HAS MILD RIGHT MOUTH DROOP, NORMAL SPEECH AND EQUAL UPPER AND LOWER EXTREMITY STRENGTH. PT HAD MRI CONFIRMING NEW ONSET CVA. PT ASSESSED PER PT AND OT. PT LIVES ALONE AND FAMILY A GREES WITH REHAB THERAPY. PT ON STATIN, PLAVIX, BP CONTROL. PT ATE ALL BREAKFAST THIS AM, UP WITH ASSITANCE TO RESTROOM DISUSSED MOVING TO FLOOR STATUS TODAY, ECHO ORDERED FOR TODAY. - Past Medical Family Social History Past Med/Fam/Surg Hx: No changes since H&P Allergies: Allergies codeine Adverse Reaction (Verified 12/08/17 12:59) - Review of Systems ROS: No change since H&P - Vital Signs and I&O's Vital Signs: Temperature 98.8 F Pulse Rate [Right Radial] 69 Pulse Rate 80 Respiratory Rate 27 Blood Pressure [Right Arm] 144/65 Blood Pressure 143/78 O2 Sat by Pulse Oximetry 97 Intake and Output: Intake & Output 12/09/17 12/10/17 12/11/17 12/12/17 11:59 11:59 11:59 11:59 Intake Total 2029 3285 / 3285 1448 / 1448 1210 / 1210 Balance 2029 3285 / 3285 1448 / 1448 1210 / 1210 - Physical Exam Oriented: Person Eyes: Normal Ear: Normal Nose: Normal Throat: Normal Respiratory: Diminished Cardiovascular: Normal, Edema (BILATERAL TRACE EDEMA) : Normal Auscultation: Bowel Sounds: Normal Tenderness: Normal Skin: Decreased Turgur Musculoskeletal: Back:Thoracic, Back:Lumbar Psychiatric: Normal Mood Description: Calm Speech Pattern: Clear, Appropriate - Laboratory and Diagnostics Result Diagrams: 12/11/17 05:15 12/11/17 05:15 Labs: 12/09/17 12:30 Blood Blood Culture - Preliminary 12/09/17 12:20 Blood Blood Culture - Preliminary 12/09/17 16:26 Urine,Clean Catch Urine Culture - Final Laboratory WBC 8.0 X10^3/uL (3.6-10.0) 12/11/17 05:15 RBC 4.64 X10^6/uL (3.5-5.4) 12/11/17 05:15 Hgb 14.8 g/dL (12.0-16.0) 12/11/17 05:15 Hct 42.4 % (36.0-47.0) 12/11/17 05:15 MCV 91.2 fL (80.0-100.0) 12/11/17 05:15 MCH 31.8 pg (27.0-34.0) 12/11/17 05:15 MCHC 34.9 g/dL (33.0-35.0) 12/11/17 05:15 RDW 14.1 % (11.6-16.5) 12/11/17 05:15 Plt Count 246 X10^3/uL (150.0-450.0) 12/11/17 05:15 MPV 8.2 fL (7.4-11.0) 12/11/17 05:15 Neut % (Auto) 53.3 % (42.0-75.0) 12/11/17 05:15 Lymph % (Auto) 27.7 % (21.0-51.0) 12/11/17 05:15 [place] % (Auto) 13.4 % (0.0-13.0) H 12/11/17 05:15 Eos % (Auto) 4.4 % (0.9-2.9) H 12/11/17 05:15 Baso % (Auto) 1.2 % (0.2-1.0) H 12/11/17 05:15 Neut # (Auto) 4.3 x10^3/uL (2.2-4.8) 12/11/17 05:15 Lymph # (Auto) 2.2 X10^3/uL (1.3-2.9) 12/11/17 05:15 [place] # (Auto) 1.1 x10^3/uL (0.3-0.8) H 12/11/17 05:15 Eos # (Auto) 0.4 x10^3/uL (0.0-0.2) H 12/11/17 05:15 Baso # (Auto) 0.1 X10^3/uL (0.0-0.1) 12/11/17 05:15 Absolute Nucleated RBC 0.0 /100WBC 12/11/17 05:15 INR Target Range - 12/08/17 13:38 INR 1.04 (0.8-1.3) 12/08/17 13:38 APTT 24.7 SECONDS (22.9-36.5) 12/08/17 13:38 PTT Comment - 12/08/17 13:38 Fibrinogen 382 mg/dL (239-489) 12/08/17 13:38 Sodium 140 mmol/L (136-145) 12/11/17 05:15 Corrected Sodium 140 mmol/L (136-145) 12/11/17 05:15 Potassium 3.7 mmol/L (3.5-5.1) 12/11/17 05:15 Chloride 106 mmol/L (98-107) 12/11/17 05:15 Carbon Dioxide 26.5 mmol/L (21-32) 12/11/17 05:15 BUN 15 mg/dL (7-18) 12/11/17 05:15 Creatinine 0.98 mg/dL (0.55-1.02) 12/11/17 05:15 Est GFR (MDRD) Af Amer > 60 (>60) 12/11/17 05:15 Est GFR (MDRD) Non-Af 58 (>60) L 12/11/17 05:15 Glucose 119 mg/dL (65-99) H 12/11/17 05:15 Calcium 8.3 mg/dL (8.5-10.1) L 12/11/17 05:15 Corrected Calcium 9.4 mg/dL (8.5-10.1) 12/11/17 05:15 Total Bilirubin 0.40 mg/dL (0.2-1.0) 12/11/17 05:15 AST 26 Units/L (15-37) 12/11/17 05:15 ALT 32 Units/L (12-78) 12/11/17 05:15 Alkaline Phosphatase 67 Units/L (46-116) 12/11/17 05:15 Creatine Kinase 26 Units/L (26-192) 12/10/17 02:30 CK-MB (CK-2) < 1.0 ng/mL (0-4.0) 12/10/17 02:30 CK/CKMB % Calc 3.9 % (<4) 12/10/17 02:30 Troponin I < 0.02 ng/mL (0-1.5) 12/10/17 02:30 Total Protein 6.0 g/dL (6.4-8.2) L 12/11/17 05:15 Albumin 2.6 g/dL (3.4-5.0) L 12/11/17 05:15 Globulin 3.4 g/dL (2.5-4.5) 12/11/17 05:15 Albumin/Globulin Ratio 0.8 Ratio (1.1-2.1) L 12/11/17 05:15 Specimen Type Catherized urine 12/08/17 14:32 Urine Color Yellow (YELLOW) 12/08/17 14:32 Urine Appearance Clear (CLEAR) 12/08/17 14:32 Urine pH 6.0 (5.0 - 8.0) 12/08/17 14:32 Ur Specific [place] 1.010 (1.000-1.030) 12/08/17 14:32 Urine Protein Negative (NEGATIVE) 12/08/17 14:32 Urine Glucose (UA) Negative (NEGATIVE) 12/08/17 14:32 Urine Ketones Negative (NEGATIVE) 12/08/17 14:32 Urine Occult Blood 1+ (NEGATIVE) 12/08/17 14:32 Urine Nitrite Negative (NEGATIVE) 12/08/17 14:32 Urine Bilirubin Negative (NEGATIVE) 12/08/17 14:32 Urine Urobilinogen Normal (NORMAL) 12/08/17 14:32 Ur Leukocyte Esterase Negative (NEGATIVE) 12/08/17 14:32 Urine RBC 0-2 /HPF (NONE SEEN) 12/08/17 14:32 Urine WBC 0-2 /HPF (NONE SEEN) 12/08/17 14:32 Ur Squamous Epith Cells Negative /HPF (NEGATIVE) 12/08/17 14:32 Urine Bacteria Negative /HPF (NEGATIVE) 12/08/17 14:32 Ur Culture Indicated? No/not indicated 12/08/17 14:32 - Plan (1) Altered mental status Status: Acute Plan: AM LABS CT HEAD AND EKG ON ADMISSION. CXR ON ADMISSION. BP AND CARDIAC MONITORING. SERIAL CE, , STATIN PLAVIX. MRI BRAIN CONFIRMED CVA, CAROTID ARTERY US. BLOOD AND URINE CULTURES ORDERED, ECHO TODAY (2) TIA (transient ischemic attack) Status: Acute (3) Hypertension Status: Acute
[2017-12-12] MEDS: CRESTOR TAB 10 MG PO SCH ×2 (01:05→20:09)
[2017-12-12] MEDS: TOPROL XL PO SCH ×3 (01:23→20:09)
[2017-12-12 05:57] LABS: BASOPHILS # (AUTO) 0.1 X10^3/uL (0.0-0.1); BASOPHILS % (AUTO) 1.1 % (0.2-1.0); EOSINOPHILS # (AUTO) 0.4 x10^3/uL (0.0-0.2); EOSINOPHILS % (AUTO) 4.5 % (0.9-2.9); HEMATOCRIT 41.1 % (36.0-47.0); HEMOGLOBIN 14.3 g/dL (12.0-16.0); LYMPHOCYTES # (AUTO) 2.5 X10^3/uL (1.3-2.9); LYMPHOCYTES % (AUTO) 27.5 % (21.0-51.0); MEAN CORPUSCULAR HEMOGLOBIN 31.7 pg (27.0-34.0); MEAN CORPUSCULAR HGB CONC 34.9 g/dL (33.0-35.0); MEAN CORPUSCULAR VOLUME 90.9 fL (80.0-100.0); MEAN PLATELET VOLUME 8.2 fL (7.4-11.0); MONOCYTES # (AUTO) 1.1 x10^3/uL (0.3-0.8); MONOCYTES % (AUTO) 11.8 % (0.0-13.0); NEUTROPHILS # (AUTO) 4.9 x10^3/uL (2.2-4.8); NEUTROPHILS % (AUTO) 55.1 % (42.0-75.0); PLATELET COUNT 225 X10^3/uL (150.0-450.0); RED BLOOD COUNT 4.52 X10^6/uL (3.5-5.4); RED CELL DISTRIBUTION WIDTH 13.9 % (11.6-16.5)
[2017-12-12 06:15] LABS: ALANINE AMINOTRANSFERASE 29 Units/L (12-78); ALBUMIN 2.5 g/dL (3.4-5.0); ALKALINE PHOSPHATASE 65 Units/L (46-116); ASPARTATE AMINO TRANSFERASE 23 Units/L (15-37); BLOOD UREA NITROGEN 15 mg/dL (7-18); CALCIUM 8.3 mg/dL (8.5-10.1); CARBON DIOXIDE 26.8 mmol/L (21-32); CHLORIDE 107 mmol/L (98-107); COR CA(FOR HYPOALB) 9.5 mg/dL (8.5-10.1); COR NA(FOR HYPERGLY) 141 mmol/L (136-145); CREATININE 0.93 mg/dL (0.55-1.02); SODIUM 140 mmol/L (136-145); TOTAL PROTEIN 5.8 g/dL (6.4-8.2); eGFR NON BLACK RACES > 60 (>60)
[2017-12-12] MEDS ORDERED: POTASSIUM CHL 40 MEQ/NS 0.45% 500 ML IV PRN (06:50)
[2017-12-12] MEDS ORDERED: POTASSIUM CHL 60 MEQ/NS 0.45% 500 ML IV PRN (06:50)
[2017-12-12] MEDS ORDERED: POTASSIUM CHLORIDE LIQ 20 MEQ UDC PO PRN (06:50)
[2017-12-12] MEDS ORDERED: K-RIDER 10 MEQ/NS 100 ML 10 MEQ/100 ML BAG IV PRN (06:50)
[2017-12-12] MEDS: NS 1000 ML 1,000 ML IV SCH ×3 (06:56→12:46)
[2017-12-12] MEDS: NORVASC TAB 5 MG PO SCH (08:58)
[2017-12-12] MEDS: ASPIRIN EC 81 MG PO SCH (08:58)
[2017-12-12] MEDS: PLAVIX PO SCH (08:59)
[2017-12-12] MEDS: K-LYTE EFFERVESCENT PO PRN (09:00)
[2017-12-12] MEDS: MILK OF MAGNESIA PO SCH (09:00)
[2017-12-12] MEDS ORDERED: MAG-OX TAB PO NR (10:00)
[2017-12-13] MEDS: NS 1000 ML 1,000 ML IV SCH (01:00)
[2017-12-13 06:40] LABS: BASOPHILS # (AUTO) 0.1 X10^3/uL (0.0-0.1); BASOPHILS % (AUTO) 0.9 % (0.2-1.0); EOSINOPHILS # (AUTO) 0.4 x10^3/uL (0.0-0.2); EOSINOPHILS % (AUTO) 4.2 % (0.9-2.9); HEMATOCRIT 42.3 % (36.0-47.0); HEMOGLOBIN 14.6 g/dL (12.0-16.0); LYMPHOCYTES # (AUTO) 2.2 X10^3/uL (1.3-2.9); LYMPHOCYTES % (AUTO) 25.4 % (21.0-51.0); MEAN CORPUSCULAR HEMOGLOBIN 31.6 pg (27.0-34.0); MEAN CORPUSCULAR HGB CONC 34.5 g/dL (33.0-35.0); MEAN CORPUSCULAR VOLUME 91.6 fL (80.0-100.0); MEAN PLATELET VOLUME 8.4 fL (7.4-11.0); MONOCYTES # (AUTO) 1.1 x10^3/uL (0.3-0.8); MONOCYTES % (AUTO) 12.6 % (0.0-13.0); NEUTROPHILS # (AUTO) 4.9 x10^3/uL (2.2-4.8); NEUTROPHILS % (AUTO) 56.9 % (42.0-75.0); PLATELET COUNT 230 X10^3/uL (150.0-450.0); RED BLOOD COUNT 4.62 X10^6/uL (3.5-5.4); RED CELL DISTRIBUTION WIDTH 14.2 % (11.6-16.5); WHITE BLOOD COUNT 8.6 X10^3/uL (3.6-10.0)
[2017-12-13 06:54] LABS: ALANINE AMINOTRANSFERASE 37 Units/L (12-78); ALBUMIN 2.5 g/dL (3.4-5.0); ALKALINE PHOSPHATASE 71 Units/L (46-116); ASPARTATE AMINO TRANSFERASE 34 Units/L (15-37); BLOOD UREA NITROGEN 12 mg/dL (7-18); CALCIUM 8.4 mg/dL (8.5-10.1); CARBON DIOXIDE 26.7 mmol/L (21-32); CHLORIDE 105 mmol/L (98-107); COR CA(FOR HYPOALB) 9.6 mg/dL (8.5-10.1); COR NA(FOR HYPERGLY) 139 mmol/L (136-145); CREATININE 0.81 mg/dL (0.55-1.02); MAGNESIUM 1.6 mg/dL (1.7-2.9); SODIUM 139 mmol/L (136-145); TOTAL PROTEIN 5.9 g/dL (6.4-8.2); eGFR NON BLACK RACES > 60 (>60)
[2017-12-13] MEDS: NORVASC TAB 5 MG PO SCH (08:33)
[2017-12-13] MEDS: TOPROL XL PO SCH ×2 (08:33→20:45)
[2017-12-13] MEDS: ASPIRIN EC 81 MG PO SCH (08:34)
[2017-12-13] MEDS: PLAVIX PO SCH (08:34)
[2017-12-13] MEDS: MILK OF MAGNESIA PO SCH (08:35)
--- NOTE | 2017-12-13 17:05 | RAD ---
HISTORY: Cough for 4 weeks Study: AP portable chest Comparison: 11/13/2017 Findings: Mild chronic interstitial scarring is noted. Mild cardiomegaly is present. Moderate tortuosity of t he aorta is noted. There appears to been probable mastectomy and axillary node dissection on the rig ht. Clinical correlation is recommended. IMPRESSION: 1. Mild chronic interstitial scarring. 2. Mild cardiomegaly without evidence of failure. 3. No radiographic evidence of acute cardiopulmonary disease or significant change is noted when com pared to the prior examination. Reported By:
[2017-12-13] MEDS ORDERED: ROBITUSSIN DM PO PRN (17:49)
--- NOTE | 2017-12-13 17:53 | PCM.PROG ---
Progress Note - Progress Note for Day of Date of Exam: 12/13/17 - Subjective Subjective: 81 WF ER ADMISSION ON 12/08 R/O ACUTE CVA. PT AWAKE AND ALERT THIS AM, VERY HARD OF HEARING, FAMILY AT BEDSIDE. PT HAS MILD RIGHT MOUTH DROOP, NORMAL SPEECH AND EQUAL UPPER AND LOWER EXTREMITY STRENGTH. PT HAD MRI CONFIRMING NEW ONSET CVA. PT ASSESSED PER PT AND OT. PT LIVES ALONE AND FAMILY A GREES WITH REHAB THERAPY. PT ON STATIN, PLAVIX, BP CONTROL. PT ATE ALL BREAKFAST THIS AM, UP WITH ASSITANCE TO RESTROOM DISUSSED MOVING TO FLOOR STATUS TODAY, PT CO NON PRODUCTIVE COUGH, CXR ORDERED, ROBITUSSIN DM PRN COUGH - Past Medical Family Social History Past Med/Fam/Surg Hx: No changes since H&P Allergies: Allergies codeine Adverse Reaction (Verified 12/08/17 12:59) - Review of Systems ROS: No change since H&P - Vital Signs and I&O's Vital Signs: Temperature 98.7 F Pulse Rate [Right Radial] 69 Pulse Rate 79 Respiratory Rate 24 Blood Pressure [Right Arm] 144/65 Blood Pressure 127/77 O2 Sat by Pulse Oximetry 94 Intake and Output: Intake & Output 12/11/17 12/12/17 12/13/17 12/14/17 11:59 11:59 11:59 11:59 Intake Total 1448 / 1448 1713 / 1713 1726 / 1726 890 / 890 Balance 1448 / 1448 1713 / 1713 1726 / 1726 890 / 890 - Physical Exam Oriented: Person Eyes: Normal Ear: Normal Nose: Normal Throat: Normal Respiratory: Diminished Cardiovascular: Normal, Edema (BILATERAL TRACE EDEMA) : Normal Auscultation: Bowel Sounds: Normal Tenderness: Normal Skin: Decreased Turgur Musculoskeletal: Back:Thoracic, Back:Lumbar Psychiatric: Normal Mood Description: Calm Speech Pattern: Clear, Appropriate - Laboratory and Diagnostics Result Diagrams: 12/13/17 05:25 12/13/17 05:25 Labs: 12/09/17 12:30 Blood Blood Culture - Preliminary 12/09/17 12:20 Blood Blood Culture - Preliminary 12/09/17 16:26 Urine,Clean Catch Urine Culture - Final Laboratory WBC 8.6 X10^3/uL (3.6-10.0) 12/13/17 05:25 RBC 4.62 X10^6/uL (3.5-5.4) 12/13/17 05:25 Hgb 14.6 g/dL (12.0-16.0) 12/13/17 05:25 Hct 42.3 % (36.0-47.0) 12/13/17 05:25 MCV 91.6 fL (80.0-100.0) 12/13/17 05:25 MCH 31.6 pg (27.0-34.0) 12/13/17 05:25 MCHC 34.5 g/dL (33.0-35.0) 12/13/17 05:25 RDW 14.2 % (11.6-16.5) 12/13/17 05:25 Plt Count 230 X10^3/uL (150.0-450.0) 12/13/17 05:25 MPV 8.4 fL (7.4-11.0) 12/13/17 05:25 Neut % (Auto) 56.9 % (42.0-75.0) 12/13/17 05:25 Lymph % (Auto) 25.4 % (21.0-51.0) 12/13/17 05:25 [place] % (Auto) 12.6 % (0.0-13.0) 12/13/17 05:25 Eos % (Auto) 4.2 % (0.9-2.9) H 12/13/17 05:25 Baso % (Auto) 0.9 % (0.2-1.0) 12/13/17 05:25 Neut # (Auto) 4.9 x10^3/uL (2.2-4.8) H 12/13/17 05:25 Lymph # (Auto) 2.2 X10^3/uL (1.3-2.9) 12/13/17 05:25 [place] # (Auto) 1.1 x10^3/uL (0.3-0.8) H 12/13/17 05:25 Eos # (Auto) 0.4 x10^3/uL (0.0-0.2) H 12/13/17 05:25 Baso # (Auto) 0.1 X10^3/uL (0.0-0.1) 12/13/17 05:25 Absolute Nucleated RBC 0.0 /100WBC 12/13/17 05:25 INR Target Range - 12/08/17 13:38 INR 1.04 (0.8-1.3) 12/08/17 13:38 APTT 24.7 SECONDS (22.9-36.5) 12/08/17 13:38 PTT Comment - 12/08/17 13:38 Fibrinogen 382 mg/dL (239-489) 12/08/17 13:38 Sodium 139 mmol/L (136-145) 12/13/17 05:25 Corrected Sodium 139 mmol/L (136-145) 12/13/17 05:25 Potassium 3.6 mmol/L (3.5-5.1) 12/13/17 05:25 Chloride 105 mmol/L (98-107) 12/13/17 05:25 Carbon Dioxide 26.7 mmol/L (21-32) 12/13/17 05:25 BUN 12 mg/dL (7-18) 12/13/17 05:25 Creatinine 0.81 mg/dL (0.55-1.02) 12/13/17 05:25 Est GFR (MDRD) Af Amer > 60 (>60) 12/13/17 05:25 Est GFR (MDRD) Non-Af > 60 (>60) 12/13/17 05:25 Glucose 112 mg/dL (65-99) H 12/13/17 05:25 Calcium 8.4 mg/dL (8.5-10.1) L 12/13/17 05:25 Corrected Calcium 9.6 mg/dL (8.5-10.1) 12/13/17 05:25 Magnesium 1.6 mg/dL (1.7-2.9) L 12/13/17 05:25 Total Bilirubin 0.50 mg/dL (0.2-1.0) 12/13/17 05:25 AST 34 Units/L (15-37) 12/13/17 05:25 ALT 37 Units/L (12-78) 12/13/17 05:25 Alkaline Phosphatase 71 Units/L (46-116) 12/13/17 05:25 Creatine Kinase 26 Units/L (26-192) 12/10/17 02:30 CK-MB (CK-2) < 1.0 ng/mL (0-4.0) 12/10/17 02:30 CK/CKMB % Calc 3.9 % (<4) 12/10/17 02:30 Troponin I < 0.02 ng/mL (0-1.5) 12/10/17 02:30 Total Protein 5.9 g/dL (6.4-8.2) L 12/13/17 05:25 Albumin 2.5 g/dL (3.4-5.0) L 12/13/17 05:25 Globulin 3.4 g/dL (2.5-4.5) 12/13/17 05:25 Albumin/Globulin Ratio 0.7 Ratio (1.1-2.1) L 12/13/17 05:25 Specimen Type Catherized urine 12/08/17 14:32 Urine Color Yellow (YELLOW) 12/08/17 14:32 Urine Appearance Clear (CLEAR) 12/08/17 14:32 Urine pH 6.0 (5.0 - 8.0) 12/08/17 14:32 Ur Specific [place] 1.010 (1.000-1.030) 12/08/17 14:32 Urine Protein Negative (NEGATIVE) 12/08/17 14:32 Urine Glucose (UA) Negative (NEGATIVE) 12/08/17 14:32 Urine Ketones Negative (NEGATIVE) 12/08/17 14:32 Urine Occult Blood 1+ (NEGATIVE) 12/08/17 14:32 Urine Nitrite Negative (NEGATIVE) 12/08/17 14:32 Urine Bilirubin Negative (NEGATIVE) 12/08/17 14:32 Urine Urobilinogen Normal (NORMAL) 12/08/17 14:32 Ur Leukocyte Esterase Negative (NEGATIVE) 12/08/17 14:32 Urine RBC 0-2 /HPF (NONE SEEN) 12/08/17 14:32 Urine WBC 0-2 /HPF (NONE SEEN) 12/08/17 14:32 Ur Squamous Epith Cells Negative /HPF (NEGATIVE) 12/08/17 14:32 Urine Bacteria Negative /HPF (NEGATIVE) 12/08/17 14:32 Ur Culture Indicated? No/not indicated 12/08/17 14:32 - Plan (1) Altered mental status Status: Acute Plan: AM LABS , CXR TODAY. BP AND CARDIAC MONITORING. SERIAL CE, , STATIN PLAVIX. MRI BRAIN CONFIRMED CVA, CAROTID ARTERY US. BLOOD AND URINE CULTURES ORDERED, ECHO, REHAB PLACMENT FOR PT (2) TIA (transient ischemic attack) Status: Acute (3) Hypertension Status: Acute
[2017-12-13] MEDS: CRESTOR TAB 10 MG PO SCH (20:45)
[2017-12-13] MEDS: MAGNESIUM SULFATE 1 GRAM/100 mL PREMIX 1 GM/100 ML BAG IV PRN ×2 (20:46→22:08)
[2017-12-13] MEDS: K-LYTE EFFERVESCENT PO PRN (20:46)
[2017-12-14 05:40] LABS: BASOPHILS # (AUTO) 0.1 X10^3/uL (0.0-0.1); BASOPHILS % (AUTO) 1.3 % (0.2-1.0); EOSINOPHILS # (AUTO) 0.4 x10^3/uL (0.0-0.2); EOSINOPHILS % (AUTO) 3.9 % (0.9-2.9); HEMATOCRIT 39.3 % (36.0-47.0); HEMOGLOBIN 13.8 g/dL (12.0-16.0); LYMPHOCYTES # (AUTO) 2.3 X10^3/uL (1.3-2.9); LYMPHOCYTES % (AUTO) 24.1 % (21.0-51.0); MEAN CORPUSCULAR HEMOGLOBIN 31.7 pg (27.0-34.0); MEAN CORPUSCULAR VOLUME 90.6 fL (80.0-100.0); MEAN PLATELET VOLUME 8.1 fL (7.4-11.0); MONOCYTES # (AUTO) 1.4 x10^3/uL (0.3-0.8); MONOCYTES % (AUTO) 14.4 % (0.0-13.0); NEUTROPHILS # (AUTO) 5.3 x10^3/uL (2.2-4.8); NEUTROPHILS % (AUTO) 56.3 % (42.0-75.0); PLATELET COUNT 206 X10^3/uL (150.0-450.0); RED BLOOD COUNT 4.33 X10^6/uL (3.5-5.4); RED CELL DISTRIBUTION WIDTH 14.1 % (11.6-16.5); WHITE BLOOD COUNT 9.5 X10^3/uL (3.6-10.0)
[2017-12-14 05:58] LABS: ALANINE AMINOTRANSFERASE 32 Units/L (12-78); ALBUMIN 2.3 g/dL (3.4-5.0); ALKALINE PHOSPHATASE 72 Units/L (46-116); ASPARTATE AMINO TRANSFERASE 29 Units/L (15-37); BLOOD UREA NITROGEN 13 mg/dL (7-18); CALCIUM 8.3 mg/dL (8.5-10.1); CARBON DIOXIDE 29.2 mmol/L (21-32); CHLORIDE 105 mmol/L (98-107); COR CA(FOR HYPOALB) 9.7 mg/dL (8.5-10.1); COR NA(FOR HYPERGLY) 140 mmol/L (136-145); CREATININE 0.93 mg/dL (0.55-1.02); SODIUM 139 mmol/L (136-145); TOTAL PROTEIN 5.7 g/dL (6.4-8.2); eGFR NON BLACK RACES > 60 (>60)
[2017-12-14] MEDS: ASPIRIN EC 81 MG PO SCH (09:21)
[2017-12-14] MEDS: NORVASC TAB 5 MG PO SCH (09:21)
[2017-12-14] MEDS: TOPROL XL PO SCH (09:21)
[2017-12-14] MEDS: MILK OF MAGNESIA PO SCH (09:22)
[2017-12-14] MEDS: PLAVIX PO SCH (09:29)
[2017-12-14 12:30] VITALS: BP 126/68
== END 2017-12-14 15:00 | DRG 948 ==
LOC: ICU 12:57 → ER 12:57 → ICU 16:04
PROVIDERS: ADMIT Internal Medicine; ATTEND Internal Medicine
DX: R47.89 Other speech disturbances; G45.8 Other transient cerebral ischemic attacks and related syndromes; R29.810 Facial weakness; Z79.01 Long term (current) use of anticoagulants; E86.0 Dehydration; R41.82 Altered mental status, unspecified; R53.1 Weakness; Z79.899 Other long term (current) drug therapy; R26.89 Other abnormalities of gait and mobility
CPT/HCPCS: 36415; 70450; 70551; 71010; 71045; 72125; 80053; 81001; 82550; 82553; 83735; 84484; 85025; 85384; 85610; 85730; 87040; 87086; 93005; 93010; 93306; 93880; 96365; 97110; 97163; 97167; 97530; 97535; 99284; A4222; G0378; J3475; J7030; J8499

== ENCOUNTER 2019-04-01 19:10 | Inpatient (IN) ==
--- NOTE | 2019-04-01 19:53 | DR.FEVERAD ---
HPI Time seen Time Seen by Provider: 04/01/19 19:52 HPI Comment HPI Comment: PATIENT IS 83YR OLD FEMALE WITH FEVER AND BODYACHES IN ER BECAUSE OF WORSENING OF SYMPTOMS. SHE IS WEAK, SOB AND FATIGUE. COUGHING BUT DENIES HEMOPTESIS. SPUTUM YELLOW. DID NOT FEEL GOOD YESTERDAY, WORSE TODAY. Complaints/Symptoms Chief Complaint Doctor Comments: GENERALIZED BODYACHE AND FEVER NOTED TODAY. Chief Complaint:: PT IN WHEELCHAIR WITH C/O HURTING ALL OVER AND FEVER. UNABLE TO SAY WHAT TEMP HAS BEEN. Self Treatment fo Chief Complaint: TYLENOL IBUPROFEN Nurses notes reviewed Nurses Notes Review: Yes Source History Provided: Patient and Family Member Mode of Arrival Mode of Arrival: Wheelchair Timing Onset of Chief Complaint: 04/01/19 Came on: Suddenly Duration Duration: Constant Duration: Hours Severity Fever Severity/Quality: subjective and greater than 100.5 F (TOOK MOTRIN.) Context Recent: None Symptoms: Fever, Cough and SOB History of: None PMH PMH Past Medical History: Yes Past Medical History: Arthritis, CVA and Hypertension Past Surgical History: Yes Surgical History: Mastectomy Family History History of Family Medical Conditions: Yes Family Medical History: Cancer Social History Does patient currently use any type of tobacco product: No Have you used tobacco products in the last 12 months: No Type of Tobacco Use: None Does any household member use tobacco: No Alcohol Use: None Do you use any recreational Drugs:: No Lives With: Family Lives Where: Home infectious screening In the last 2 months have you had wt loss of >10#?: NO Have you had fever, night sweats or hemotysis?: No Have you traveled outside the country in the last 6 months?: No Isolation: Standard ROS Review of Systems Constitutional: See HPI, Fever, Malaise, Weakness and Fatigue Eyes: No Symptoms Reported and See HPI ENTM: See HPI, Nose Discharge and Nose Congestion; negative Ear Pain and Throat Pain Respiratoy: See HPI, Productive Cough, Short of Breath and Wheezing; negative Hemoptysis Cardiovascular: No Symptoms Reported, See HPI and Chest Pain; negative Palpitat ions Gastrointestinal/Abdominal: See HPI and Nausea; negative Abdominal Pain, Diarrhea and Vomiting Genitourinary: No Symptoms Reported and See HPI; negative Dysuria and Hematuria Neurological: See HPI and Weakness; negative Headache and Dizziness Musculoskeletal: See HPI, Back Pain and Muscle Pain Integumentary: No Symptoms Reported and See HPI; negative Change in Color, Rash and Juandice Hematologic/Lymphatic: No Symptoms Reported and See HPI; negative Easy Bruising and Swollen Glands Endocrine: See HPI, Increased Thirst and Decreased Appetite; negative Increased Urine Psychiatric: No Symptoms Reported and See HPI All Other Systems: Reviewed and Negative PE Vital Signs Vitals: Temperature 100.4 F Pulse Rate [Left Brachial] 85 Pulse Rate 85 Respiratory Rate 22 Blood Pressure [Left Arm] 73/39 Blood Pressure [Right Arm] 144/65 Blood Pressure 120/67 O2 Sat by Pulse Oximetry 96 General Limitations: No Limitations General Appearance: Alert and In No Apparent Distress Head Head Exam: Normal Inspection and Atraumatic Eyes Eye exam: Normal Appearance and PERRL; negative Scleral Icterus and Conjunctival Injection ENT ENT Exam: Normal Oropharynx and Normal External Ear Exam; negative TM's Normal Bilaterally External Ear Exam: Normal External Inspection; negative Mastoid Tenderness TM/Canal Exam: Bilateral: Bulging Nose Exam: negative Sinus Tenderness, Nasal Deviation and Septal Hematoma Mouth Exam: Normal Inspection Teeth Exam: Dental Caries; negative Dental Tenderness # and Gingival Swelling Throat Exam: Tonsillar Erythema; negative Tonsillomegaly and Tonsillar Exudate Neck Neck Exam: Normal Inspection and Trachea Midline; negative Tenderness and Lymphadenopathy Respiratory Respiratory Exam: Normal Lung Sounds Bilat and Respiratory Distress; negative Accessory Muscle Use and Chest Wall Tenderness Respiratory Exam: Bilateral: Wheezing and Bilateral: Rhonchi and Lower: Wheezing and Lower: Rhonchi Cardiovascular Cardiovascular Exam: Regular Rate, Normal Rhythm and Normal Heart Sounds Abdominal Exam Abdominal Exam: Normal Inspection, Normal Bowel Sounds and Soft; negative Tenderness Extremities Extremities Exam: Normal Inspection and Normal Capillary Refill; negative Tenderness and Calf Tenderness Back Back Exam: Tenderness and Vertebral Tenderness; negative Paraspinal Tenderness Neurologic Neurological Exam: Alert and Oriented X3; negative Motor Sensory Deficit Psychiatric Psychiatric Exam: Normal Affect and Normal Mood Skin Skin Exam: Dry COURSE Treatment Treatment: SEE ORDERS. Education/Counseling Education/Counseling: Patient Educated On: Diagnosis ROR Labs Reviewed Laboratory Results Reviewed?: Yes Result Diagrams: 04/02/19 05:08 04/02/19 05:08 Laboratory: WBC 9.1 X10^3/uL (3.6-10.0) 04/01/19 20:41 RBC 4.86 X10^6/uL (3.5-5.4) 04/01/19 20:41 Hgb 15.3 g/dL (12.0-16.0) 04/01/19 20: Hct 44.8 % (36.0-47.0) 04/01/19 20: MCV 92.1 fL (80.0-100.0) 04/01/19 20: MCH 31.6 pg (27.0-34.0) 04/01/19 20: MCHC 34.3 g/dL (33.0-35.0) 04/01/19: RDW 13.0 % (11.6-16.5) 04/01/19 20: Plt Count 141 X10^3/uL (150.0-450.0) L 04/01/19 20: Plt Count Comment Decreased (ADEQUATE) A 04/01/19 MPV 7.9 fL (7.4-11.0) 04/01/19 20: Neut % (Auto) 93.8 % (42.0-75.0) H 04/01/19 20: Lymph % (Auto) 5.1 % (21.0-51.0) L 04/01/19 20: [place] % (Auto) 0.8 % (0.0-13.0) 04/01/19: Eos % (Auto) 0.1 % (0.9-2.9) L 04/01/19 20: Baso % (Auto) 0.2 % (0.2-1.0) 04/01/19 20: Neut # (Auto) 8.6 x10^3/uL (2.2-4.8) H 04/01/19 20: Lymph # (Auto) 0.5 X10^3/uL (1.3-2.9) L 04/01/19 20: [place] # (Auto) 0.1 x10^3/uL (0.3-0.8) L 04/01/19 20: Eos # (Auto) 0.0 x10^3/uL (0.0-0.2) 04/01/19 20: Baso # (Auto) 0.0 X10^3/uL (0.0-0.1) 04/01/19 20: Absolute Nucleated RBC 0.0 /100WBC 04/01/19 20:41 Total Counted 100 04/01/19 20:41 Neutrophils % (Manual) 82 % (39-76) H 04/01/19 20:41 Band Neutrophils % 3 % (0-10) 04/01/19 20:41 Lymphocytes % (Manual) 10 % (13-43) L 04/01/19 20:41 Monocytes % (Manual) 3 % (4-9) L 04/01/19 20:41 Metamyelocytes % 2 04/01/19 20:41 Plt Morphology Comment Normal (NORMAL) 04/01/19 20:41 RBC Morphology Normal (NORMAL) 04/01/19 20:41 Sample Site Lr 04/01/19 22:00 ABG pH 7.520 (7.35-7.45) H 04/01/19 22:00 ABG pCO2 32.0 mmHg (35.0-45.0) L 04/01/19 22:00 ABG pO2 51.0 mmHg (80.0-100.0) L 04/01/19 22:00 ABG HCO3 26.1 mmol/L (22-26) H 04/01/19 22:00 ABG O2 Saturation 90.0 % (90-100) 04/01/19 22:00 ABG Base Excess 3.6 mmol/L (-2.0-2.0) H 04/01/19 22:00 Deng Test Pos 04/01/19 22:00 A-a Gradient 59.0 mmHg 04/01/19 22:00 FiO2 21 04/01/19 22:00 Blood Gas Comments Pt herlinda well llj 04/01/19 22:00 Sodium 140 mmol/L (136-145) 04/01/19 20:41 Corrected Sodium 141 mmol/L (136-145) 04/01/19 20:41 Potassium 3.4 mmol/L (3.5-5.1) L 04/01/19 20:41 Chloride 103 mmol/L (98-107) 04/01/19 20:41 Carbon Dioxide 29.1 mmol/L (21-32) 04/01/19 20:41 BUN 18 mg/dL (7-18) 04/01/19 20:41 Creatinine 1.34 mg/dL (0.55-1.02) H 04/01/19 20:41 Est GFR (MDRD) Af Amer 48 (>60) L 04/01/19 20:41 Est GFR (MDRD) Non-Af 40 (>60) L 04/01/19 20:41 Glucose 138 mg/dL (65-99) H 04/01/19 20:41 Calcium 8.3 mg/dL (8.5-10.1) L 04/01/19 20:41 Corrected Calcium 9.1 mg/dL (8.5-10.1) 04/01/19 20:41 Total Bilirubin 1.50 mg/dL (0.2-1.0) H 04/01/19 20:41 AST 23 Units/L (15-37) 04/01/19 20:41 ALT 20 Units/L (12-78) 04/01/19 20:41 Alkaline Phosphatase 86 Units/L (46-116) 04/01/19 20:41 Creatine Kinase 38 Units/L (26-192) 04/01/19 20:41 CK-MB (CK-2) < 1.0 ng/mL (0-4.0) 04/01/19 20: CK/CKMB % Calc 2.6 % (<4) 04/01/19 20:41 Troponin I < 0.02 ng/mL (0-1.5) 04/01/19 20: B-Natriuretic Peptide 149 pg/mL (0-79) H 04/01/19 20:41 Total Protein 6.3 g/dL (6.4-8.2) L 04/01/19 20:41 Albumin 3.0 g/dL (3.4-5.0) L 04/01/19 20: Globulin 3.3 g/dL (2.5-4.5) 04/01/19 20: Albumin/Globulin Ratio 0.9 Ratio (1.1-2.1) L 04/01/19 20: Amylase 53 Units/L (25-115) 04/01/19 20: Lipase 209 Units/L (73-393) 04/01/19 20:41 Specimen Type Random urine 04/01/19 21:30 Urine Color Yellow (YELLOW) 04/01/19 21:30 Urine Appearance Cloudy (CLEAR) 04/01/19 21:30 Urine pH 6.5 (5.0 - 8.0) 04/01/19 21:30 Ur Specific [place] 1.010 (1.000-1.030) 04/01/19 21:30 Urine Protein 1+ (NEGATIVE) 04/01/19 21:30 Urine Glucose (UA) Negative (NEGATIVE) 04/01/19 21:30 Urine Ketones Negative (NEGATIVE) 04/01/19 21:30 Urine Occult Blood 5+ (NEGATIVE) 04/01/19 21:30 Urine Nitrite Negative (NEGATIVE) 04/01/19 21: Urine Bilirubin Negative (NEGATIVE) 04/01/19 21:30 Urine Urobilinogen Normal (NORMAL) 04/01/19 21:30 Ur Leukocyte Esterase 3+ (NEGATIVE) 04/01/19 21: Urine RBC Tntc /HPF (0-3) A 04/01/19 21: Urine WBC 10-20 /HPF (0-5) A 04/01/19 21:30 Ur Squamous Epith Cells Few /HPF (NEGATIVE) 04/01/19 21:30 Urine Bacteria 3+ /HPF (NEGATIVE) 04/01/19 21:30 Ur Culture Indicated? No/not indicated 04/01/19 21:30 Influenza Type A (PCR) Negative (NEGATIVE) 04/01/19 20:49 Influenza Type B (PCR) Negative (NEGATIVE) 04/01/19 20:49 XRAY XRAY Interpreted by: Radiologist and Self XRAY Findings: REPORT NOTED AND DISCUSSED WITH PATIENT. EKG Rate: 90 [place]: Normal Rhythm: NSR Block: None Hypertrophy: None ST: Nonsp (POOR R WAVE PROGRESSION.) Opioid Opioid Risk Tool Age (Corey box if 16-45): No History of Preadolescent Sexual Abuse: No Total: 0 Total Score Risk Category: Low Risk Copyright: [facility] predicting aberrant behaviors Diagnosis Discharge Problem: Acute respiratory distress, Hypoxia UTI (urinary tract infection) Qualifiers: Urinary tract infection type: site unspecified Hematuria presence: with hematuria Qualified Code(s): N39.0 - Urinary tract infection, site not specified
[2019-04-01 20:53] LABS: BASOPHILS % (AUTO) 0.2 % (0.2-1.0); EOSINOPHILS % (AUTO) 0.1 % (0.9-2.9); HEMATOCRIT 44.8 % (36.0-47.0); HEMOGLOBIN 15.3 g/dL (12.0-16.0); LYMPHOCYTES # (AUTO) 0.5 X10^3/uL (1.3-2.9); LYMPHOCYTES % (AUTO) 5.1 % (21.0-51.0); MEAN CORPUSCULAR HEMOGLOBIN 31.6 pg (27.0-34.0); MEAN CORPUSCULAR HGB CONC 34.3 g/dL (33.0-35.0); MEAN CORPUSCULAR VOLUME 92.1 fL (80.0-100.0); MEAN PLATELET VOLUME 7.9 fL (7.4-11.0); MONOCYTES # (AUTO) 0.1 x10^3/uL (0.3-0.8); MONOCYTES % (AUTO) 0.8 % (0.0-13.0); NEUTROPHILS # (AUTO) 8.6 x10^3/uL (2.2-4.8); NEUTROPHILS % (AUTO) 93.8 % (42.0-75.0); PLATELET COUNT 141 X10^3/uL (150.0-450.0); RED BLOOD COUNT 4.86 X10^6/uL (3.5-5.4); WHITE BLOOD COUNT 9.1 X10^3/uL (3.6-10.0)
[2019-04-01 21:04] LABS: BAND NEUTROPHILS % 3 % (0-10)
[2019-04-01 21:05] LABS: BLOOD UREA NITROGEN 18 mg/dL (7-18); CALCIUM 8.3 mg/dL (8.5-10.1); CARBON DIOXIDE 29.1 mmol/L (21-32); CHLORIDE 103 mmol/L (98-107); COR NA(FOR HYPERGLY) 141 mmol/L (136-145); CREATININE 1.34 mg/dL (0.55-1.02); PLATELET MORPHOLOGY COMMENT NORMAL (NORMAL); SODIUM 140 mmol/L (136-145); TROPONIN I < 0.02 ng/mL (0-1.5); eGFR NON BLACK RACES 40 (>60)
[2019-04-01 21:07] LABS: METAMYELOCYTES % 2
[2019-04-01 21:10] LABS: ALANINE AMINOTRANSFERASE 20 Units/L (12-78); ALKALINE PHOSPHATASE 86 Units/L (46-116); AMYLASE 53 Units/L (25-115); ASPARTATE AMINO TRANSFERASE 23 Units/L (15-37); CKMB % 2.6 % (<4); COR CA(FOR HYPOALB) 9.1 mg/dL (8.5-10.1); CREATINE KINASE 38 Units/L (26-192); CREATINE KINASE MB < 1.0 ng/mL (0-4.0); LIPASE 209 Units/L (73-393); TOTAL PROTEIN 6.3 g/dL (6.4-8.2)
--- NOTE | 2019-04-01 21:13 | RAD ---
HISTORYsobSTUDYCHEST, 1 [id number] heart is mildly enlarged but unchanged. The pulmonary vessels are normal. The lungs are mildly hyperinflated and emphysematous. There are mild linear densities along the lung bases which are more prominent. No consolidation or effusion is seen.IMPRESSIONStable mild cardiomegaly.Mild discoid atelectasis or scarring along the lung bases which is more prominent.Electronically signed by: HAILE REDDY (Apr 01, 2019 21:12:33)
[2019-04-01 21:37] LABS: BILIRUBIN,URINE NEGATIVE (NEGATIVE); BLOOD/HEMOGLOBIN,URINE 5+ (NEGATIVE); COLOR,URINE YELLOW (YELLOW); GLUCOSE, URINE NEGATIVE (NEGATIVE); KETONES,URINE NEGATIVE (NEGATIVE); LEUKOCYTE ESTERASE ,URINE 3+ (NEGATIVE); NITRITES,URINE NEGATIVE (NEGATIVE); PH,URINE 6.5 (5.0 - 8.0); PROTEIN,URINE 1+ (NEGATIVE); UROBILINOGEN,URINE NORMAL (NORMAL)
[2019-04-01 21:38] LABS: APPEARANCE,URINE CLOUDY (CLEAR)
[2019-04-01 21:42] LABS: BACTERIA,URINE 3+ /HPF (NEGATIVE); RBC,URINE TNTC /HPF (0-3); SQUAMOUS EPITHELIAL CELL,UR FEW /HPF (NEGATIVE)
[2019-04-01 22:12] LABS: ABG ALLEN TEST POS; ABG BASE EXCESS 3.6 mmol/L (-2.0-2.0); ABG HCO3 26.1 mmol/L (22-26); FRACTIONATED INSPIRED OXYGEN 21
[2019-04-02] MEDS ORDERED: NS 1000 ML 1,000 ML ONE (00:37)
[2019-04-02] MEDS ORDERED: NS 1000 ML 1,000 ML IV SCH (01:00)
[2019-04-02 01:06] LABS: BILIRUBIN,URINE 1+ (NEGATIVE); BLOOD/HEMOGLOBIN,URINE 5+ (NEGATIVE); GLUCOSE, URINE NEGATIVE (NEGATIVE); KETONES,URINE 1+ (NEGATIVE); LEUKOCYTE ESTERASE ,URINE 3+ (NEGATIVE); NITRITES,URINE NEGATIVE (NEGATIVE); PROTEIN,URINE 3+ (NEGATIVE); UROBILINOGEN,URINE 1+ (NORMAL)
[2019-04-02 01:13] LABS: AMORPHOUS SEDIMENT,UR 1+ /HPF (NEGATIVE); APPEARANCE,URINE HAZY (CLEAR); BACTERIA,URINE 1+ /HPF (NEGATIVE); COLOR,URINE AMBER (YELLOW); RBC,URINE TNTC /HPF (0-3); SQUAMOUS EPITHELIAL CELL,UR RARE /HPF (NEGATIVE)
[2019-04-02] MEDS ORDERED: TYLENOL 325 MG TAB PO ONE ×2 (01:13→01:14)
[2019-04-02] MEDS ORDERED: NS 100 ML IV + SPIKE MINIBAG* 100 ML IV ONE (01:31)
[2019-04-02] MEDS ORDERED: ROCEPHIN VIAL 1 GRAM ONE (01:32)
[2019-04-02] MEDS: ROCEPHIN VIAL 1 GRAM 1 G in NS 100 ML IV + SPIKE MINIBAG* 100 ML IV SCH ×2 (01:35→09:19)
[2019-04-02] MEDS: DUONEB 0.5 MG/3 MG (3 mL) NEB SCH ×5 (02:30→22:00)
[2019-04-02 03:21] VITALS: BMI 29.7
[2019-04-02] MEDS: NS 1000 ML 1,000 ML IV SCH ×2 (03:38→20:10)
[2019-04-02 06:11] LABS: BASOPHILS % (AUTO) 0.2 % (0.2-1.0); HEMATOCRIT 39.3 % (36.0-47.0); HEMOGLOBIN 13.4 g/dL (12.0-16.0); LYMPHOCYTES # (AUTO) 0.5 X10^3/uL (1.3-2.9); LYMPHOCYTES % (AUTO) 3.2 % (21.0-51.0); MEAN CORPUSCULAR HEMOGLOBIN 31.8 pg (27.0-34.0); MEAN CORPUSCULAR HGB CONC 34.2 g/dL (33.0-35.0); MEAN PLATELET VOLUME 8.5 fL (7.4-11.0); MONOCYTES # (AUTO) 0.6 x10^3/uL (0.3-0.8); MONOCYTES % (AUTO) 3.9 % (0.0-13.0); NEUTROPHILS # (AUTO) 14.9 x10^3/uL (2.2-4.8); NEUTROPHILS % (AUTO) 92.7 % (42.0-75.0); PLATELET COUNT 125 X10^3/uL (150.0-450.0); RED BLOOD COUNT 4.22 X10^6/uL (3.5-5.4); RED CELL DISTRIBUTION WIDTH 13.6 % (11.6-16.5)
[2019-04-02 06:52] LABS: ALANINE AMINOTRANSFERASE 16 Units/L (12-78); ALBUMIN 2.4 g/dL (3.4-5.0); ALKALINE PHOSPHATASE 65 Units/L (46-116); ASPARTATE AMINO TRANSFERASE 22 Units/L (15-37); BLOOD UREA NITROGEN 23 mg/dL (7-18); CALCIUM 7.6 mg/dL (8.5-10.1); CARBON DIOXIDE 25.1 mmol/L (21-32); CHLORIDE 103 mmol/L (98-107); CHOL/HDL RATIO 2.4 (0.0-5.0); CHOLESTEROL 124 mg/dL (0-200); CKMB % 2.3 % (<4); COR CA(FOR HYPOALB) 8.9 mg/dL (8.5-10.1); COR NA(FOR HYPERGLY) 140 mmol/L (136-145); CREATINE KINASE 44 Units/L (26-192); CREATINE KINASE MB < 1.0 ng/mL (0-4.0); CREATININE 1.88 mg/dL (0.55-1.02); HDL CHOLESTEROL 51 mg/dL (40-60); MAGNESIUM 1.2 mg/dL (1.7-2.9); SODIUM 139 mmol/L (136-145); TOTAL PROTEIN 5.4 g/dL (6.4-8.2); TRIGLYCERIDES 64 mg/dL (0-150); TROPONIN I < 0.02 ng/mL (0-1.5); eGFR NON BLACK RACES 27 (>60)
[2019-04-02 07:05] LABS: BAND NEUTROPHILS % 29 % (0-10); PLATELET MORPHOLOGY COMMENT NORMAL (NORMAL)
[2019-04-02] MEDS ORDERED: PROTONIX INJ 40 MG VIAL IVP SCH (09:00)
[2019-04-02] MEDS ORDERED: NORVASC TAB 5 MG PO SCH (09:00)
[2019-04-02 09:04] LABS: ABG ALLEN TEST POS; ABG BASE EXCESS -0.4 mmol/L (-2.0-2.0); ABG HCO3 21.8 mmol/L (22-26)
[2019-04-02] MEDS: TOPROL XL PO SCH ×2 (09:18→21:19)
[2019-04-02] MEDS ORDERED: MORPHINE SULFATE INJ 2 MG INJ IVP PRN (09:33)
[2019-04-02] MEDS ORDERED: ZOFRAN INJ 4 MG VIAL IVP PRN (09:33)
[2019-04-02] MEDS ORDERED: AFLURIA II4 or FLUARIX II4 IM ONE (10:21)
[2019-04-02] MEDS: LASIX IVP SCH ×2 (10:30→21:19)
[2019-04-02] MEDS: SOLU-Medrol 125 MG VIAL IVP SCH ×3 (10:30→21:00)
--- NOTE | 2019-04-02 10:32 | CT ---
HISTORYAbdominal painSTUDYABDOMEN/PELVIS W/O CONTechnique: Axial noncontrast images with coronal and sagittal reformats. Dose reduction procedures were used with mA/kv adjusted for body size.COMPARISONNoneFINDINGSBilateral minimal pleural effusions are present. There is some mild dependent atelectatic changes in the lung bases. There is a partially visualized 6.7 mm parenchymal abnormality in the anterior right lung base. This could represent infiltrate or nodule. Chest CT with contrast is recommended for further evaluation. The heart is enlarged. The liver, spleen, adrenal glands, and pancreas are within normal limits to the limitations of an unenhanced examination. There are no opaque stones visible within the gallbladder. The right kidney is unobstructed and without stones. No right ureteral calculi are identified. There is a 1 cm left renal calculus located in the lower pole infundibulum. There is mild proximal caliceal dilatation. There is also mild left-sided hydroureteronephrosis proximal to a 6.5 mm calculus located in the left mid ureter. More distally the ureter is normal. Calcific atherosclerotic change is present in a nondilated abdominal aorta. No intraperitoneal or retroperitoneal lymphadenopathy of significance is identified. There are no findings suggestive of diverticulitis or colitis. The appendix is not identified with absolute certainty. There are no secondary signs of appendicitis present. Examination of the pelvis demonstrated no evidence for pelvic masses, pelvic fluid, or pelvic lymphadenopathy. No definite bladder abnormality is identified. No lytic or blastic skeletal lesions of significance are identified.IMPRESSION6.5 mm obstructing left mid ureteral [id number] mm left lower pole infundibular calculus with mild obstruction to the lower pole calyx6.7 mm partially visualized parenchymal abnormality in the anterior right lung base which should be further evaluated with chest CT with contrast.Minimal bilateral pleural effusionsElectronically signed by: CARRIE LAMBERT (Apr 02, 2019 10:30:59)
--- NOTE | 2019-04-02 12:03 | RAD ---
HISTORYAbdominal painSTUDYKUBCOMPARISONNoneFINDINGSA 1 cm calculus projects over the lower pole of the left kidney. Th e bowel gas pattern is unremarkable. There are degenerative changes in the spine.IMPRESSIONLeft lower pole 1 cm renal calculusElectronically signed by: CHERRY PAGE (Apr 02, 2019 12:02:14)
--- NOTE | 2019-04-02 12:05 | RAD ---
HISTORYCoughSTUDYPA and lateral chestCOMPARISONJanuary 2019FINDINGSThere is mild elevation of the left hemidiaphragm in there is increased density at the left lung base posteromedially. The right lung is clear. There are multiple surgical clips in the right axilla status post parent rice mastectomy. The heart size is mildly enlarged.IMPRESSION1. Left lower lobe posterior basilar probable pneumonia2. CardiomegalyElectronically signed by: CHERRY PAGE (Apr 02, 2019 12:04:24)
[2019-04-02 12:18] LABS: CKMB % 0.6 % (<4); CREATINE KINASE 172 Units/L (26-192); CREATINE KINASE MB < 1.0 ng/mL (0-4.0); TROPONIN I < 0.02 ng/mL (0-1.5)
--- NOTE | 2019-04-02 13:42 | DR.H&P ---
H&P - History & Physical for Day of: H&P Date: 04/02/19 - Chief Complaint Chief Complaint: fever, pain all over - History of Present Illness History of Present Illness: PT IS 83 WF ER ADMISSION WITH CO HURTING ALL OVER, FEVER. PT WAS NOTED TO BE SOB ON ARRIVAL TO ER. PT HAS PMH OF HTN, DM CONTROLLED WITH DIET, HX CVA. PT ADMITTED TO ICU, FOR TREATMENT AND EVALUATION OF ACUTE ILLNESS. - Past Medical History Past Medical History: Hypertension, CVA, Arthritis - Past Surgical History Surgical History: Mastectomy, Tonsillectomy - Family History Family Medical History: Cancer, Hypertension - Social History Does patient currently use any type of tobacco product: No Have you used tobacco products in the last 12 months: No Type of Tobacco Use: None Does any household member use tobacco: No Alcohol Use: None Drug Use: None - Medications Home Medications: codeine Adverse Reaction (Verified 12/08/17 12:59) CONTINUE taking the following medications metoprolol succinate 50 mg PO BID 04/02/19 [History] - Review of Systems Constitutional: Fever, Weakness Eyes: No Symptoms Reported ENT: No Symptoms Reported Respiratory: Other (BREATHING FAST) Cardiovascular: No Symptoms Reported Gastrointestinal: Abdominal Pain Musculoskeletal: Back Pain Skin: No Symptoms Reported Neurological: Weakness - Physical Exam Vital Signs: Temperature 99.0 F Pulse Rate [Left Brachial] 85 Pulse Rate 104 Respiratory Rate 44 Blood Pressure [Left Arm] 88/46 Blood Pressure [Right Arm] 144/65 Blood Pressure 133/70 O2 Sat by Pulse Oximetry 97 Oriented: Person Eyes: Normal Nose: Normal Throat: Dry Respiratory: RLL Diminished, LLL Diminished Cardiovascular: Normal : Normal Auscultation: Bowel Sounds: Normal Palpation: Normal Tenderness: Diffuse, Suprapubic Skin: Decreased Turgur Musculoskeletal: Back:Thoracic, Back:Lumbar Psychiatric: Anxiety Affect: Anxious Speech Pattern: Clear, Appropriate - Assessment/Plan (1) Acute respiratory distress Status: Acute Plan: PT ADMITTED TO ICU. ABG, CXR ON ADMISSION. SUPPLEMENTAL O2, FLU SWAB ON ADMISSION. AM LABS, SERIAL EKG AND BP MONITORING. VERIFY HOME MEDICATION, UA WITH UC (2) Hypoxia Status: Acute (3) UTI (urinary tract infection) Qualifiers: Urinary tract infection type: site unspecified Hematuria presence: with hematuria Qualified Code(s): N39.0 - Urinary tract infection, site not specified; R31.9 - Hematuria, unspecified Status: Acute (4) Hypertension Status: Acute (5) TIA (transient ischemic attack) Status: Acute - Allergies Allergies/Adverse Reactions: Allergies Allergy/AdvReac Type Severity Reaction Status Date / Time codeine AdvReac Verified 12/08/17 12:59
--- NOTE | 2019-04-02 13:48 | PCM.PROG ---
Progress Note - Progress Note for Day of Date of Exam: 04/02/19 - Subjective Subjective: 83 WF ER ADMISSION WITH CO FEVER, HURTING ALL OVER. PT HAS UTI, STARTED ON IV ROCEPHIN ON ADMISSION. PT HAD TACHYPNEA ON EXAM WITH O2 SAT 98%. PT CRYING ON EXAM WITH CO BACK PAIN AND STOMACH PAIN. KUB OBTAINED. PT GIVEN MORPHINE FOR PAIN CONTROL, CT ABD PELVIS W/O ORDERED. BLOOD CULTURES ORDERED. REPEAT ABG AND REPEAT CXR THIS AM. - Past Medical Family Social History Past Med/Fam/Surg Hx: No changes since H&P Allergies: Allergies codeine Adverse Reaction (Verified 12/08/17 12:59) - Review of Systems ROS: No change since H&P - Vital Signs and I&O's Vital Signs: Temperature 99.0 F Pulse Rate [Left Brachial] 85 Pulse Rate 104 Respiratory Rate 44 Blood Pressure [Left Arm] 88/46 Blood Pressure [Right Arm] 144/65 Blood Pressure 133/70 O2 Sat by Pulse Oximetry 97 Intake and Output: Intake & Output 03/31/19 04/01/19 04/02/19 04/03/19 11:59 11:59 11:59 11:59 Intake Total 303 / 303 Balance 303 / 303 - Physical Exam Oriented: Person Eyes: Normal Nose: Normal Throat: Dry Cardiovascular: Normal : Normal Auscultation: Bowel Sounds: Normal Tenderness: Diffuse, Suprapubic Skin: Decreased Turgur Musculoskeletal: Back:Thoracic, Back:Lumbar Psychiatric: Anxiety Affect: Anxious Speech Pattern: Clear, Appropriate - Laboratory and Diagnostics Result Diagrams: 04/02/19 05:08 04/02/19 05:08 Labs: Laboratory WBC 16.0 X10^3/uL (3.6-10.0) H 04/02/19 05:08 RBC 4.22 X10^6/uL (3.5-5.4) 04/02/19 05:08 Hgb 13.4 g/dL (12.0-16.0) 04/02/19 05:08 Hct 39.3 % (36.0-47.0) 04/02/19 05:08 MCV 93.0 fL (80.0-100.0) 04/02/19 05:08 MCH 31.8 pg (27.0-34.0) 04/02/19 05:08 MCHC 34.2 g/dL (33.0-35.0) 04/02/19 05:08 RDW 13.6 % (11.6-16.5) 04/02/19 05:08 Plt Count 125 X10^3/uL (150.0-450.0) L 04/02/19 05:08 Plt Count Comment Decreased (ADEQUATE) A 04/02/19 05:08 MPV 8.5 fL (7.4-11.0) 04/02/19 05:08 Neut % (Auto) 92.7 % (42.0-75.0) H 04/02/19 05:08 Lymph % (Auto) 3.2 % (21.0-51.0) L 04/02/19 05:08 [place] % (Auto) 3.9 % (0.0-13.0) 04/02/19 05:08 Eos % (Auto) 0.0 % (0.9-2.9) L 04/02/19 05:08 Baso % (Auto) 0.2 % (0.2-1.0) 04/02/19 05:08 Neut # (Auto) 14.9 x10^3/uL (2.2-4.8) H 04/02/19 05:08 Lymph # (Auto) 0.5 X10^3/uL (1.3-2.9) L 04/02/19 05:08 [place] # (Auto) 0.6 x10^3/uL (0.3-0.8) 04/02/19 05:08 Eos # (Auto) 0.0 x10^3/uL (0.0-0.2) 04/02/19 05:08 Baso # (Auto) 0.0 X10^3/uL (0.0-0.1) 04/02/19 05:08 Absolute Nucleated RBC 0.0 /100WBC 04/02/19 05:08 Total Counted 100 04/02/19 05:08 Neutrophils % (Manual) 65 % (39-76) 04/02/19 05:08 Band Neutrophils % 29 % (0-10) H 04/02/19 05:08 Lymphocytes % (Manual) 3 % (13-43) L 04/02/19 05:08 Monocytes % (Manual) 3 % (4-9) L 04/02/19 05:08 Metamyelocytes % 2 04/01/19 20:41 Plt Morphology Comment Normal (NORMAL) 04/02/19 05:08 RBC Morphology Normal (NORMAL) 04/02/19 05:08 PT 15.1 SECONDS (11.8-14.3) 04/02/19 01:45 INR Target Range - 04/02/19 01:45 INR 1.24 (0.8-1.3) 04/02/19 01:45 APTT 28.4 SECONDS (22.9-36.5) 04/02/19 01:45 PTT Comment - 04/02/19 01:45 Sample Site Rr 04/02/19 08:56 ABG pH 7.500 (7.35-7.45) H 04/02/19 08:56 ABG pCO2 28.0 mmHg (35.0-45.0) L 04/02/19 08:56 ABG pO2 57.0 mmHg (80.0-100.0) L 04/02/19 08:56 ABG HCO3 21.8 mmol/L (22-26) L 04/02/19 08:56 ABG O2 Saturation 92.0 % (90-100) 04/02/19 08:56 ABG Base Excess -0.4 mmol/L (-2.0-2.0) 04/02/19 08:56 Deng Test Pos 04/02/19 08:56 A-a Gradient 136.0 mmHg 04/02/19 08:56 FiO2 32.0 04/02/19 08:56 Blood Gas Comments Pt herlinda well. cdn 04/02/19 08:56 Sodium 139 mmol/L (136-145) 04/02/19 05:08 Corrected Sodium 140 mmol/L (136-145) 04/02/19 05:08 Potassium 3.4 mmol/L (3.5-5.1) L 04/02/19 05:08 Chloride 103 mmol/L (98-107) 04/02/19 05:08 Carbon Dioxide 25.1 mmol/L (21-32) 04/02/19 05:08 BUN 23 mg/dL (7-18) H 04/02/19 05:08 Creatinine 1.88 mg/dL (0.55-1.02) H 04/02/19 05:08 Est GFR (MDRD) Af Amer 33 (>60) L 04/02/19 05:08 Est GFR (MDRD) Non-Af 27 (>60) L 04/02/19 05:08 Glucose 139 mg/dL (65-99) H 04/02/19 05:08 Lactic Acid 4.3 mmol/L (0.4-2.0) H 04/02/19 09:05 Calcium 7.6 mg/dL (8.5-10.1) L 04/02/19 05:08 Corrected Calcium 8.9 mg/dL (8.5-10.1) 04/02/19 05:08 Magnesium 1.2 mg/dL (1.7-2.9) L 04/02/19 05:08 Total Bilirubin 0.60 mg/dL (0.2-1.0) 04/02/19 05:08 AST 22 Units/L (15-37) 04/02/19 05:08 ALT 16 Units/L (12-78) 04/02/19 05:08 Alkaline Phosphatase 65 Units/L (46-116) 04/02/19 05:08 Creatine Kinase 172 Units/L (26-192) 04/02/19 11:10 CK-MB (CK-2) < 1.0 ng/mL (0-4.0) 04/02/19 11:10 CK/CKMB % Calc 0.6 % (<4) 04/02/19 11:10 Troponin I < 0.02 ng/mL (0-1.5) 04/02/19 11:10 B-Natriuretic Peptide 149 pg/mL (0-79) H 04/01/19 20:41 Total Protein 5.4 g/dL (6.4-8.2) L 04/02/19 05:08 Albumin 2.4 g/dL (3.4-5.0) L 04/02/19 05:08 Globulin 3.0 g/dL (2.5-4.5) 04/02/19 05:08 Albumin/Globulin Ratio 0.8 Ratio (1.1-2.1) L 04/02/19 05:08 Triglycerides 64 mg/dL (0-150) 04/02/19 05:08 Cholesterol 124 mg/dL (0-200) 04/02/19 05:08 LDL Cholesterol, Calc 60 mg/dL (0-100) 04/02/19 05:08 HDL Cholesterol 51 mg/dL (40-60) 04/02/19 05:08 Cholesterol/HDL Ratio 2.4 (0.0-5.0) 04/02/19 05:08 Amylase 53 Units/L (25-115) 04/01/19 20:41 Lipase 209 Units/L (73-393) 04/01/19 20:41 Specimen Type Catherized urine 04/02/19 00:54 Urine Color [place] (YELLOW) 04/02/19 00:54 Urine Appearance Hazy (CLEAR) 04/02/19 00:54 Urine pH 5.0 (5.0 - 8.0) 04/02/19 00:54 Ur Specific [place] 1.020 (1.000-1.030) 04/02/19 00:54 Urine Protein 3+ (NEGATIVE) 04/02/19 00:54 Urine Glucose (UA) Negative (NEGATIVE) 04/02/19 00:54 Urine Ketones 1+ (NEGATIVE) 04/02/19 00:54 Urine Occult Blood 5+ (NEGATIVE) 04/02/19 00:54 Urine Nitrite Negative (NEGATIVE) 04/02/19 00:54 Urine Bilirubin 1+ (NEGATIVE) 04/02/19 00:54 Urine Urobilinogen 1+ (NORMAL) 04/02/19 00:54 Ur Leukocyte Esterase 3+ (NEGATIVE) 04/02/19 00:54 Urine RBC Tntc /HPF (0-3) A 04/02/19 00:54 Urine WBC 30-50 /HPF (0-5) A 04/02/19 00:54 Ur Squamous Epith Cells Rare /HPF (NEGATIVE) 04/02/19 00:54 Amorphous Sediment 1+ /HPF (NEGATIVE) 04/02/19 00:54 Urine Bacteria 1+ /HPF (NEGATIVE) 04/02/19 00:54 Ur Culture Indicated? Yes/culture set up 04/02/19 00:54 Influenza Type A (PCR) Negative (NEGATIVE) 04/01/19 20:49 Influenza Type B (PCR) Negative (NEGATIVE) 04/01/19 20:49 - Plan (1) Acute respiratory distress Status: Acute Plan: ICU, RESP THERAPY. ABG, CXR THIS AM, GENTLE IV HYDRATION. PAIN CONTROL. BP MONITORING, CT ABD PELVIS W/O RODRIGUEZ CATH WITH STRICT I & OS. SUPPLEMENTAL O2, FLU SWAB ON ADMISSION. AM LABS, SERIAL EKG AND BP MONITORING. VERIFY HOME MEDICATION, UA WITH UC (2) UTI (urinary tract infection) Status: Acute Qualifiers: Urinary tract infection type: site unspecified Hematuria presence: with hematuria Qualified Code(s): N39.0 - Urinary tract infection, site not specified; R31.9 - Hematuria, unspecified (3) Hypoxia Status: Acute (4) Hypertension Status: Acute (5) TIA (transient ischemic attack) Status: Acute
[2019-04-02] MEDS ORDERED: POTASSIUM CHL 60 MEQ/NS 0.45% 500 ML IV PRN (14:14)
[2019-04-02] MEDS ORDERED: POTASSIUM CHLORIDE LIQ 20 MEQ UDC PO PRN (14:14)
[2019-04-02] MEDS ORDERED: K-DUR TAB 20 MEQ PO PRN (14:14)
[2019-04-02] MEDS ORDERED: POTASSIUM CHL 40 MEQ/NS 0.45% 500 ML IV PRN (14:14)
[2019-04-02] MEDS ORDERED: MICRO K EXTEN CAP 10 MEQ PO PRN (14:14)
[2019-04-02] MEDS ORDERED: KLOR-CON PO PRN (14:14)
[2019-04-02] MEDS ORDERED: K-RIDER 10 MEQ/NS 100 ML 10 MEQ/100 ML BAG IV PRN (14:14)
[2019-04-02] MEDS ORDERED: LOVENOX INJ 40 MG SYR SC SCH (15:00)
[2019-04-02] MEDS ORDERED: MAGNESIUM SULFATE 1 GRAM/100 mL PREMIX 1 G/100 ML BAG IV ONE ×2 (17:01→17:02)
[2019-04-02] MEDS: MAGNESIUM SULFATE 1 GRAM/100 mL PREMIX 1 GM/100 ML BAG IV PRN ×3 (17:27→21:36)
[2019-04-02 17:38] LABS: ABG BASE EXCESS -4.1 mmol/L (-2.0-2.0); ABG HCO3 19.8 mmol/L (22-26)
[2019-04-02] MEDS ORDERED: FLOMAX PO SCH (21:00)
[2019-04-02] MEDS ORDERED: FLOMAX ONE (21:18)
[2019-04-02 22:29] VITALS: BP 87/51
== END 2019-04-02 22:30 | disposition short-term general hospital (02) | DRG 690 ==
LOC: ICU 19:32 → ER 19:32 → OBSVTOIN 04-02 00:28 → ICU 04-02 02:05
PROVIDERS: ADMIT Internal Medicine; ATTEND Internal Medicine
CPT/HCPCS: 36415; 36600; 71010; 71020; 71045; 71046; 74000; 74018; 74176; 80053; 80061; 81001; 82150; 82550; 82553; 82803; 83605; 83690; 83735; 83880; 84484; 85025; 85610; 85730; 87040; 87086; 87088; 87186; 87502; 93005; 94640; 96365; 99284; A4222; C9113; J0696; J1940; J2270; J2930; J3475; J3490; J7030; J7050; J7620